=== PATIENT | female | born 1945 | race Caucasian/White ===

== ENCOUNTER 2017-02-03 14:48 | Inpatient (IN) | payer OTHER ==
[~2017-02-03] VITALS: Ht 160 cm; Wt 60.9 kg
[~2017-02-03 14:48] MED LIST: ACCUNEB0.63 MG/3 IH; ACETAMINOPHEN650 M7 PO; ADVAIR 250/501 DISK IH; ADVAIR 500/501 DISK IH; ADVAIR HFA 115-28 GM IH; ADVAIR HFA120 INHALA IH; ALBUTEROL SULF8.5 GM IH; ALBUTEROL2.5 MG/3 M IH; ALEVE220 M2 PO; ALPRAZOLAM0.25 MG PO; AMARYL2 MG PO; AMBIEN5 M1 PO; ATIVAN0.5 MG PO; ATROVENT H200 INHALA IH; AZOR 5-20 MG T1 EACH PO; AZOR 5/20 MG1 TABLET PO; Advair HFA 115/21 IH; Ambien PO; Atrovent HFA Inhaler IH; BENGAY GREASEL113 GM TP; BRETHINE2.5 MG PO; BUMEX1 MG PO; BUSPIRONE HCL10 MG PO; BUSPIRONE HCL5 MG PO; CALCIUM 600 +1 EA15 PO; CALCIUM 600 +1 EAC2 PO; CALCIUM 600 +1 EACH PO; CARDIZEM CD180 MG PO; CARDIZEM120 MG PO; CARDIZEM60 MG PO; CATAPRES0.1 MG PO; CLEOCIN150 MG PO; CLINDAMYCIN HC300 MG PO; CLOTRIMAZOLE15 GM TP; COLACE100 MG PO; COMPAZINE10 MG PO; COZAAR25 MG PO; Cozaar PO; DELTASONE10 MG PO; DESYREL12.5 MG PO; DETROL LA4 MG PO; DITROPAN5 MG PO; DORIBAX500 MG PO; DUONEB 2.5-0.5 M3 ML IH; DURAGESIC12 MCG TD; DURAGESIC75 MCG TD; Detrol LA PO; Duragesic TD; EFFEXOR XR150 MG PO; EFFEXOR XR75 MG PO; EFFEXOR37.5 MG PO; ELIXOPHYLL80 MG/15 M PO; Effexor PO; FENTANYL1 EAC2 TD; FENTANYL1 EACH TD; FLORASTOR250 MG PO; FLULAVAL IM; FOSAMAX70 MG; FOSAMAX70 MG PO; FUROSEMIDE20 MG PO; FUROSEMIDE40 MG PO; Flexeril PO; Fosamax PO; GABAPENTIN100 MG PO; GLIMEPIRIDE2 MG PO; GLIPIZIDE5 M1 PO; GUAIFENESIN-CO480 ML PO; HYDROCHLOROTHIA25 MG PO; IBUPROFEN400 MG PO; ICY HOT PAIN70.8 GM TP; INVanz IV; K-DUR20 MEQ PO; K-Dur PO; KLOR-CON M2020 MEQ PO; LASIX40 MG PO; LEVAQUIN500 MG PO; LEXAPRO10 MG PO; LIDODERM 5% P1 PATCH PO; LIDODERM 5% P1 PATCH TD; LORAZEPAM0.5 MG PO; LOVENOX40 MG/0.4 SC; Lasix PO; MAALOX; MACROBID100 MG PO; MECLIZINE HCL12.5 M1 PO; MELATONIN5 M1 PO; MIRTAZAPINE15 MG PO; MIRTAZAPINE7.5 MG PO; MORPHINE PO; MORPHINE S10 MG/5 ML PO; MORPHINE SULFATE IR; MYRBETRIQ50 MG PO; MYSOLINE50 MG PO; Maalox, Mylanta PO; NASAL DECONGEST30 MG PO; NEURONTIN100 MG PO; NITROGLYCERIN0.4 MG SL; NITROSTAT0.4 MG SL; NIZORAL 2% CREA15 GM TP; NORCO 5-325 TA1 EACH PO; NORCO 5/3251 TABLET PO; NOVOLOG PE100 UNITS/ SC; NOVOLOG100 UNIT/2 SQ; NYSTATIN100000 UN1 PO; Neurontin PO; Nitrostat,NitroQuick SL; OMEPRAZOLE20 M2 PO; OMEPRAZOLE20 MG PO; OSCAL, OYSTER500 MG PO; OXYBUTYNIN CHLOR5 MG PO; OXYCODONE HCL10 MG PO; OXYCODONE HCL5 MG PO; OXYCODONE5 MG PO; Oyst-Cal D, Oscal W/ PO; POTASSIUM CHLO20 ME2 PO; PREDNISONE; PREDNISONE PO; PREDNISONE10 MG PO; PREDNISONE20 M1 PO; PREDNISONE20 MG PO; PREDNISONE5 M2 PO; PREDNISONE5 MG PO; PREVACID30 MG PO; PRILOSEC20 MG PO; PROAIR HFA8.5 GM IH; PROCHLORPERAZIN10 MG PO; PROTONIX40 MG PO; PROVENTIL,2.5 MG/3 M IH; PULMICORT0.5 MG/21 IH; RANITIDINE HCL150 M1 PO; RANITIDINE HCL150 MG PO; ROBITUSSIN AC,T10 ML PO; ROBITUSSIN COU118 M6 PO; ROBITUSSIN DM118 ML PO; ROBITUSSIN100 MG/5 M PO; Reglan IV; Remove Lidoderm Patc TD; Robitussin AC,Tussi- PO; Robitussin, Organidi PO; SCOPOLAMINE; SENNA LAXATIVE1 EACH PO; SENNA8.6 MG PO; SENOKOT S,PE1 TABLET PO; SPIRIVA RESPIMAT4 GM IH; SPIRIVA1 INHALATI IH; Senokot S,Pericolace PO; THEO-24 100 MG100 MG PO; THEO-24200 MG PO; THEO-DUR,THEOC200 MG PO; THEOPHYLLINE A200 M1 PO; TRAMADOL HCL50 MG PO; TYLENOL 8 HOUR650 MG PO; TYLENOL REGULA325 MG PO; TYLENOL WITH C1 EACH PO; Theo-Dur,Theocron PO; Topamax PO; Tylenol Regular Stre PO; VENLAFAXINE HC150 MG PO; XANAX XR0.5 MG PO; XANAX0.5 MG PO; XOPENEX1.25 MG/0. IH; XOPENEX1.25 MG/3 IH; Xanax PO; ZANTAC150 MG PO; ZOFRAN4 MG PO; Zofran PO; Zyvox PO; [UNRECOGNIZED DRUG - OTHER] MM; [UNRECOGNIZED DRUG - OTHER] PO; oxyCODONE PO; predniSONE PO
[2017-02-03 15:48] LABS: BASOPHIL COUNT 0.1 K/uL (0-0.1); EOSINOPHIL (%) 5.9 % (0-5); EOSINOPHIL COUNT 0.5 K/uL (0-0.3); HEMATOCRIT 40.3 % (36.0-46.0); IMMATURE GRANULOCYTE (%) 0.2 % (0.0-0.7); INSTRUMENT ABS NEUTROPHIL CT 5.5 K/uL; LYMPHOCYTE COUNT 1.8 K/uL (1.0-2.8); MCH 29.6 PG (29.0-34.0); MCV 89.6 FL (83-99); MEAN PLAT.VOLUME 7.8 uM^3 (9.5-12.4); MONOCYTE (%) 13.3 % (3-12); MONOCYTE COUNT 1.2 K/uL (0-0.8); NEUTROPHIL (%) 60.3 % (45-76); NEUTROPHIL COUNT 5.5 K/uL (1.8-6.4); PLATELET COUNT 254 K/uL (156-360); RBC DIS.WIDTH-CV 13.2 % (11.8-14.6); RBC DIS.WIDTH-SD 43.7 % (39-53); WHITE BLOOD COUNT 9.1 K/uL (4.1-10.2)
[2017-02-03 16:08] LABS: CHLORIDE 97 mEq/L (99-109)
[2017-02-03 16:09] LABS: POTASSIUM 3.3 mEq/L (3.7-5.4); SODIUM 139 mEq/L (136-147)
[2017-02-03 16:11] LABS: GLUCOSE 98 mg/dL (70-99)
[2017-02-03 16:12] LABS: ANION GAP 12 MEQ/L (2-14)
[2017-02-03 16:13] LABS: TOTAL BILIRUBIN 0.4 mg/dL (0.0-1.0)
[2017-02-03 16:14] LABS: ALKALINE PHOSPHATASE 60 IU/L (3-129); GFR ESTIMATE (CALCULATED) > 59 mL/min/
[2017-02-03 16:16] LABS: UREA NITROGEN (BUN) 13 mg/dL (9-23)
[2017-02-03 16:18] LABS: LIPASE 10 U/L (1.0-51.0)
[2017-02-03] MEDS ORDERED: LO-DOSE ASPIRIN81 M2 PO (18:25)
[2017-02-03] MEDS ORDERED: DONEPEZIL HCL10 MG PO (18:26)
[2017-02-03] MEDS ORDERED: BREO ELLIPTA 21 EACH IH (18:26)
[2017-02-03] MEDS ORDERED: IMDUR60 MG PO (18:27)
[2017-02-03] MEDS ORDERED: DURAGESIC25 MCG TD (18:27)
[2017-02-03] MEDS ORDERED: MEDROL32 MG PO ×2 (18:28→18:29)
[2017-02-03] MEDS ORDERED: METOPROLOL SUCC25 MG PO (18:29)
[2017-02-03] MEDS ORDERED: SENNA-S TABLET1 EACH PO (18:30)
[2017-02-03] MEDS ORDERED: VENLAFAXINE HCL75 MG PO (18:31)
[2017-02-03] MEDS ORDERED: OXYBUTYNIN CHLOR5 MG PO (18:32)
[2017-02-03] MEDS ORDERED: OXYCODONE HCL5 MG PO (18:33)
[2017-02-03] MEDS ORDERED: RANEXA500 MG PO (18:34)
[2017-02-03] MEDS ORDERED: PROTONIX40 MG PO (18:34)
[2017-02-03] MEDS ORDERED: THEOPHYLLINE A200 M1 PO (18:35)
[2017-02-03] MEDS ORDERED: ARTIFICIAL TEAR15 M1 BOTH EYES (18:37)
[2017-02-03] MEDS ORDERED: COMPAZINE5 MG PO (18:37)
[2017-02-03 20:57] VITALS: BP 141/78
[2017-02-04] VITALS (7 sets, daily range): BP systolic 115–169; BP diastolic 56–80
[2017-02-04 02:05] LABS: POINT-OF-CARE METER ID UU14188577
[2017-02-04 06:57] LABS: POINT-OF-CARE METER ID UU14149397
[2017-02-04 08:23] LABS: HEMATOCRIT 37.8 % (36.0-46.0); MCHC 32.3 G/DL (30.0-36.0); MCV 92.9 FL (83-99); MEAN PLAT.VOLUME 8.2 uM^3 (9.5-12.4); PLATELET COUNT 225 K/uL (156-360); RBC DIS.WIDTH-CV 13.7 % (11.8-14.6); RBC DIS.WIDTH-SD 46.5 % (39-53); RED BLOOD COUNT 4.07 M/uL (3.80-5.20); WHITE BLOOD COUNT 9.9 K/uL (4.1-10.2)
[2017-02-04 08:53] LABS: ANION GAP 10 MEQ/L (2-14); CHLORIDE 98 MEQ/L (99-109); GFR ESTIMATE (CALCULATED) 58 mL/min/; GLUCOSE 87 mg/dL (70-99); POTASSIUM 3.7 MEQ/L (3.7-5.4); SAMPLE HEMOLYSIS CHECK 0; SAMPLE ICTERIC CHECK 0; SAMPLE LIPEMIA CHECK 0; SODIUM 142 MEQ/L (136-147); UREA NITROGEN (BUN) 13 mg/dL (9-23)
[2017-02-04 11:14] LABS: POINT-OF-CARE METER ID UU14149397
[2017-02-04 15:47] LABS: POINT-OF-CARE METER ID UU14149397
[2017-02-05 00:10] LABS: POINT-OF-CARE METER ID UU14149397
[2017-02-05 04:05] VITALS: BP 128/74
[2017-02-05 06:21] LABS: MAGNESIUM 1.6 mg/dl (1.3-2.7)
[2017-02-05 06:27] LABS: ALKALINE PHOSPHATASE 52 IU/L (3-129); ANION GAP 10 MEQ/L (2-14); CHLORIDE 101 MEQ/L (99-109); GFR ESTIMATE (CALCULATED) 52 mL/min/; GLUCOSE 151 mg/dL (70-99); POTASSIUM 3.8 MEQ/L (3.7-5.4); SAMPLE HEMOLYSIS CHECK 0; SAMPLE ICTERIC CHECK 0; SAMPLE LIPEMIA CHECK 0; SODIUM 143 MEQ/L (136-147); TOTAL BILIRUBIN 0.3 MG/DL (0.0-1.0); UREA NITROGEN (BUN) 17 mg/dL (9-23)
[2017-02-05 06:29] LABS: POINT-OF-CARE METER ID UU14188577
[2017-02-05 07:07] LABS: EOSINOPHIL (%) 0 % (0-5); HEMATOCRIT 39.5 % (36.0-46.0); IMMATURE GRANULOCYTE (%) 0.3 % (0.0-0.7); INSTRUMENT ABS NEUTROPHIL CT 3.2 K/uL; LYMPHOCYTE COUNT 0.6 K/uL (1.0-2.8); MCH 29.6 PG (29.0-34.0); MCHC 32.2 G/DL (30.0-36.0); MCV 92.1 FL (83-99); MEAN PLAT.VOLUME 8.2 uM^3 (9.5-12.4); MONOCYTE (%) 2.3 % (3-12); MONOCYTE COUNT 0.1 K/uL (0-0.8); NEUTROPHIL (%) 82.1 % (45-76); NEUTROPHIL COUNT 3.2 K/uL (1.8-6.4); PLATELET COUNT 254 K/uL (156-360); RBC DIS.WIDTH-CV 13.4 % (11.8-14.6); RBC DIS.WIDTH-SD 45.4 % (39-53); RED BLOOD COUNT 4.29 M/uL (3.80-5.20)
[2017-02-05 07:13] LABS: WHITE BLOOD COUNT 3.9 K/uL (4.1-10.2)
[2017-02-05 07:32] VITALS: BP 107/68
[2017-02-05 11:31] VITALS: BP 129/76
[2017-02-05 11:46] LABS: POINT-OF-CARE METER ID UU14149397
[2017-02-05 15:50] VITALS: BP 126/60
[2017-02-05 16:23] LABS: POINT-OF-CARE METER ID UU14149397
[2017-02-05 20:31] VITALS: BP 102/62
[2017-02-06 00:02] VITALS: BP 132/65
[2017-02-06 00:29] LABS: POINT-OF-CARE METER ID UU14188577
[2017-02-06 03:26] VITALS: BP 127/63
[2017-02-06 06:25] LABS: POINT-OF-CARE METER ID UU14149397
[2017-02-06 06:27] LABS: ANION GAP 7 MEQ/L (2-14); CHLORIDE 101 MEQ/L (99-109); GFR ESTIMATE (CALCULATED) > 59 mL/min/; GLUCOSE 154 mg/dL (70-99); POTASSIUM 3.6 MEQ/L (3.7-5.4); SAMPLE HEMOLYSIS CHECK 0; SAMPLE ICTERIC CHECK 0; SAMPLE LIPEMIA CHECK 0; SODIUM 141 MEQ/L (136-147); UREA NITROGEN (BUN) 18 mg/dL (9-23)
[2017-02-06 06:37] LABS: MCH 29.4 PG (29.0-34.0); MCHC 31.7 G/DL (30.0-36.0); MCV 92.6 FL (83-99); MEAN PLAT.VOLUME 8.2 uM^3 (9.5-12.4); PLATELET COUNT 249 K/uL (156-360); RBC DIS.WIDTH-CV 13.5 % (11.8-14.6); RBC DIS.WIDTH-SD 45.9 % (39-53); RED BLOOD COUNT 3.78 M/uL (3.80-5.20)
[2017-02-06 06:41] LABS: WHITE BLOOD COUNT 9.7 K/uL (4.1-10.2)
[2017-02-06 07:38] VITALS: BP 126/71
[2017-02-06 12:09] VITALS: BP 156/85
[2017-02-06 13:00] LABS: POINT-OF-CARE METER ID UU14149397
[2017-02-06 15:56] VITALS: BP 144/70
[2017-02-06 16:13] LABS: POINT-OF-CARE METER ID UU14188577
[2017-02-06 20:10] VITALS: BP 132/76
[2017-02-07 00:06] VITALS: BP 168/84
[2017-02-07 04:22] VITALS: BP 147/65
[2017-02-07 06:19] LABS: POINT-OF-CARE METER ID UU14188577
[2017-02-07 06:31] LABS: ALKALINE PHOSPHATASE 40 IU/L (3-129); DIRECT BILIRUBIN 0.1 mg/dL (0.0-0.3); TOTAL BILIRUBIN 0.3 MG/DL (0.0-1.0)
[2017-02-07 12:03] VITALS: BP 145/68
[2017-02-07 15:39] VITALS: BP 145/73
[2017-02-07 16:21] LABS: POINT-OF-CARE METER ID UU14149397
[2017-02-07 19:45] VITALS: BP 151/76
[2017-02-08 00:12] LABS: POINT-OF-CARE METER ID UU14149397
[2017-02-08 00:20] VITALS: BP 166/70
[2017-02-08 03:25] VITALS: BP 157/83
[2017-02-08 06:44] LABS: POINT-OF-CARE METER ID UU14188577
[2017-02-08 07:59] VITALS: BP 161/80
[2017-02-08] MEDS ORDERED: DURAGESIC25 MCG TD (08:55)
[2017-02-08] MEDS ORDERED: PREDNISONE10 MG PO (08:55)
[2017-02-08] MEDS ORDERED: GABAPENTIN100 MG PO (08:55)
[2017-02-08] MEDS ORDERED: OXYCODONE HCL5 MG PO (08:55)
[2017-02-08] MEDS ORDERED: MIRTAZAPINE15 MG PO (08:55)
[2017-02-08 12:02] LABS: POINT-OF-CARE METER ID UU14188577
[2017-02-08 12:35] VITALS: BP 154/85
== END 2017-02-08 12:51 | DRG 190 ==
LOC: EME 14:48 → EDOF 18:39 → 3EAST 18:39
PROVIDERS: Emergency Medicine; Hospitalist; Internal Medicine Gastroenterology; Nurse Practitioner Family; Surgery
DX: J44.1 Chronic obstructive pulmonary disease with (acute) exacerbation (principal); J96.22 Acute and chronic respiratory failure with hypercapnia; J96.21 Acute and chronic respiratory failure with hypoxia; R10.11 Right upper quadrant pain; K80.20 Calculus of gallbladder without cholecystitis without obstruction; I10 Essential (primary) hypertension; E87.6 Hypokalemia; E11.9 Type 2 diabetes mellitus without complications; E78.5 Hyperlipidemia, unspecified; I48.2 Chronic atrial fibrillation; K21.9 Gastro-esophageal reflux disease without esophagitis; F41.9 Anxiety disorder, unspecified; F32.9 Major depressive disorder, single episode, unspecified; R42 Dizziness and giddiness; G89.29 Other chronic pain; Z99.81 Dependence on supplemental oxygen; Z85.42 Personal history of malignant neoplasm of other parts of uterus; Z87.891 Personal history of nicotine dependence; Z88.1 Allergy status to other antibiotic agents; Z88.2 Allergy status to sulfonamides
CPT/HCPCS: 71010; 71020; 74022; 74177; 76705; 78227; 80048; 80053; 80076; 81003; 82948; 83690; 83735; 84100; 85025; 85027; 93005; 94640; 94640 76; 94667; 94668; 94799; 99202; 99281; 99285; A9537; J1650; J1815; J2270; J2405; J2543; J2805; J2920; J7030; J7040; J7042; J7050; J7512

== ENCOUNTER 2017-08-17 05:25 | Day surgery (SDC) | payer OTHER ==
[~2017-08-17] VITALS: Ht 162.6 cm; Wt 81.8 kg
[~2017-08-17 05:25] MED LIST changes: +ARTIFICIAL TEAR15 M1 BOTH EYES; +BREO ELLIPTA 21 EACH IH; +BUSPAR15 MG PO; -BUSPIRONE HCL10 MG PO; +COMPAZINE5 MG PO; +DITROPAN XL10 MG PO; +DONEPEZIL HCL10 MG PO; +DURAGESIC25 MCG TD; +IMDUR60 MG PO; +LASIX20 MG PO; +LO-DOSE ASPIRIN81 M2 PO; +MEDROL32 MG PO; +METOPROLOL SUCC25 MG PO; +MIRALAX17 GM PO; +MS CONTIN,ORAMO15 M1 PO; +RANEXA500 MG PO; +RAYOS5 MG PO; +REMERON15 M2 PO; +SENNA-S TABLET1 EACH PO; +ULTRAM50 MG PO; +VENLAFAXINE HCL75 MG PO; +VENLAFAXINE225 MG PO; +VITAMIN B-121000 MCG PO
[2017-08-17 05:52] VITALS: BP 148/78
[2017-08-17 07:21] LABS: PROBE CHECK PASS
[2017-08-17 07:23] LABS: METH RESISTANT S AUREUS PCR POSITIVE (NEGATIVE)
[2017-08-17 15:25] VITALS: BP 166/76
[2017-08-17 19:26] VITALS: BP 138/74
[2017-08-18 00:22] VITALS: BP 115/56
[2017-08-18 03:21] VITALS: BP 127/79
[2017-08-18 07:05] VITALS: BP 146/78
[2017-08-18 07:10] LABS: HEMATOCRIT 36.4 % (36.0-46.0); MCH 31.8 PG (29.0-34.0); MCHC 30.8 G/DL (30.0-36.0); MCV 103.4 FL (83-99); PLATELET COUNT 180 K/uL (156-360); RBC DIS.WIDTH-CV 13.2 % (11.8-14.6); RBC DIS.WIDTH-SD 49.6 % (39-53); RED BLOOD COUNT 3.52 M/uL (3.80-5.20); WHITE BLOOD COUNT 18.6 K/uL (4.1-10.2)
[2017-08-18 11:42] VITALS: BP 130/66
== END 2017-08-18 14:07 ==
LOC: SDC 05:25 → NUC 07:00 → 2SOUTH 12:15 → 2EASTP 12:15 → ENRESERV 12:21 → 2EASTP 15:09
PROVIDERS: Surgery
DX: C50.411 Malignant neoplasm of upper-outer quadrant of right female breast (principal); Z17.0 Estrogen receptor positive status [ER+]; E66.3 Overweight; Z68.27 Body mass index [BMI] 27.0-27.9, adult; J44.9 Chronic obstructive pulmonary disease, unspecified; I10 Essential (primary) hypertension; K21.9 Gastro-esophageal reflux disease without esophagitis; E11.9 Type 2 diabetes mellitus without complications; F41.8 Other specified anxiety disorders; Z87.891 Personal history of nicotine dependence; Z79.82 Long term (current) use of aspirin; Z88.2 Allergy status to sulfonamides
CPT/HCPCS: 78195; 78999; 85027; 87641; 88305; 88307; 94640 76; 94799; 99202; A9541; G0378; J0330; J1100; J2405; J2710; J3010; J3370; J3480; J7512; S0020

== ENCOUNTER 2017-11-04 13:31 | Inpatient (IN) | payer OTHER ==
[~2017-11-04] VITALS: Ht 162.6 cm; Wt 79.6 kg
[~2017-11-04 13:31] MED LIST changes: +CYANOCOBALAM1000 MCG PO; -LASIX20 MG PO; +PREDNISONE1 MG PO; -RAYOS5 MG PO; +VENLAFAXINE H37.5 M1 PO; -VENLAFAXINE225 MG PO; -VITAMIN B-121000 MCG PO
[2017-11-04 13:51] LABS: HEMATOCRIT 36.4 % (36.0-46.0); MCH 31.4 PG (29.0-34.0); MCHC 32.1 G/DL (30.0-36.0); MCV 97.6 FL (83-99); MEAN PLAT.VOLUME 8.3 uM^3 (9.5-12.4); PLATELET COUNT 214 K/uL (156-360); RBC DIS.WIDTH-CV 12.3 % (11.8-14.6); RBC DIS.WIDTH-SD 44.1 % (39-53); RED BLOOD COUNT 3.73 M/uL (3.80-5.20); WHITE BLOOD COUNT 15.3 K/uL (4.1-10.2)
[2017-11-04 13:57] LABS: INTER. NORMALIZED RATIO 1.1; PROTHROMBIN TIME 12.4 SEC (10.2-12.9)
[2017-11-04 13:59] LABS: PTT 34.2 SEC (25-37)
[2017-11-04 14:08] LABS: CHLORIDE 93 mEq/L (99-109); POTASSIUM 3.3 mEq/L (3.7-5.4); SODIUM 143 mEq/L (136-147)
[2017-11-04 14:09] LABS: GLUCOSE 137 mg/dL (70-99)
[2017-11-04 14:11] LABS: ANION GAP 14 MEQ/L (2-14)
[2017-11-04 14:12] LABS: TROP-I INTERPRETATION NEGATIVE; TROPONIN-I < 0.01 ng/mL (0.0-0.30)
[2017-11-04 14:13] LABS: GFR ESTIMATE (CALCULATED) > 59 mL/min/
[2017-11-04 14:14] LABS: UREA NITROGEN (BUN) 13 mg/dL (9-23)
[2017-11-04] MEDS ORDERED: DALIRESP500 MCG PO (18:23)
[2017-11-04] MEDS ORDERED: TAB-A-VITE-MIN1 EACH PO (18:26)
[2017-11-04] MEDS ORDERED: MYSOLINE50 MG PO (18:28)
[2017-11-04] MEDS ORDERED: DUONEB 2.5-0.5 M3 ML AEROSOL (18:31)
[2017-11-04 19:55] VITALS: BP 134/78
[2017-11-04 22:52] VITALS: BP 114/60
[2017-11-05 03:38] VITALS: BP 122/55
[2017-11-05 05:39] LABS: POINT-OF-CARE METER ID UU13113725
[2017-11-05 05:52] LABS: HEMATOCRIT 38.7 % (36.0-46.0); MCH 31.6 PG (29.0-34.0); MCHC 32.3 G/DL (30.0-36.0); MEAN PLAT.VOLUME 8.6 uM^3 (9.5-12.4); PLATELET COUNT 226 K/uL (156-360); RBC DIS.WIDTH-CV 12.3 % (11.8-14.6); RBC DIS.WIDTH-SD 44.4 % (39-53); RED BLOOD COUNT 3.95 M/uL (3.80-5.20); WHITE BLOOD COUNT 10.6 K/uL (4.1-10.2)
[2017-11-05 07:31] VITALS: BP 134/70
[2017-11-05 08:31] LABS: ANION GAP 10 MEQ/L (2-14); CHLORIDE 97 MEQ/L (99-109); GFR ESTIMATE (CALCULATED) 52 mL/min/; GLUCOSE 181 mg/dL (70-99); SAMPLE HEMOLYSIS CHECK 2; SAMPLE ICTERIC CHECK 0; SAMPLE LIPEMIA CHECK 0; SODIUM 142 MEQ/L (136-147); UREA NITROGEN (BUN) 20 mg/dL (9-23)
[2017-11-05 08:41] LABS: POTASSIUM 4.8 MEQ/L (3.7-5.4)
[2017-11-05 10:59] LABS: POINT-OF-CARE METER ID UU13113774
[2017-11-05 11:32] VITALS: BP 138/72
[2017-11-05 15:58] LABS: POINT-OF-CARE METER ID UU13113774
[2017-11-05 16:30] VITALS: BP 131/66
[2017-11-05 18:49] VITALS: BP 154/76
[2017-11-05 22:37] VITALS: BP 108/61
[2017-11-06 03:07] VITALS: BP 132/70
[2017-11-06 05:49] LABS: EOSINOPHIL (%) 0 % (0-5); HEMATOCRIT 37.6 % (36.0-46.0); IMMATURE GRANULOCYTE (%) 1.4 % (0.0-0.7); IMMATURE GRANULOCYTE COUNT 0.3 K/uL; INSTRUMENT ABS NEUTROPHIL CT 18.1 K/uL; LYMPHOCYTE COUNT 0.7 K/uL (1.0-2.8); MCH 31.3 PG (29.0-34.0); MCHC 32.2 G/DL (30.0-36.0); MCV 97.2 FL (83-99); MEAN PLAT.VOLUME 8.6 uM^3 (9.5-12.4); MONOCYTE (%) 4.4 % (3-12); MONOCYTE COUNT 0.9 K/uL (0-0.8); NEUTROPHIL (%) 90.5 % (45-76); NEUTROPHIL COUNT 18.1 K/uL (1.8-6.4); PLATELET COUNT 254 K/uL (156-360); RBC DIS.WIDTH-CV 12.5 % (11.8-14.6); RBC DIS.WIDTH-SD 44.9 % (39-53); RED BLOOD COUNT 3.87 M/uL (3.80-5.20)
[2017-11-06 05:50] LABS: POINT-OF-CARE METER ID UU14302474
[2017-11-06 06:16] LABS: ANION GAP 9 MEQ/L (2-14); CHLORIDE 98 MEQ/L (99-109); GFR ESTIMATE (CALCULATED) > 59 mL/min/; GLUCOSE 148 mg/dL (70-99); POTASSIUM 4.1 MEQ/L (3.7-5.4); SAMPLE HEMOLYSIS CHECK 0; SAMPLE ICTERIC CHECK 0; SAMPLE LIPEMIA CHECK 0; SODIUM 145 MEQ/L (136-147); UREA NITROGEN (BUN) 17 mg/dL (9-23)
[2017-11-06 07:38] VITALS: BP 136/63
[2017-11-06 11:19] LABS: POINT-OF-CARE METER ID UU14302474
[2017-11-06 16:30] LABS: POINT-OF-CARE METER ID UU13113725
[2017-11-06 16:58] VITALS: BP 131/62
[2017-11-06 23:42] VITALS: BP 132/65
[2017-11-07 05:52] LABS: EOSINOPHIL (%) 0.1 % (0-5); HEMATOCRIT 35.6 % (36.0-46.0); IMMATURE GRANULOCYTE (%) 0.9 % (0.0-0.7); IMMATURE GRANULOCYTE COUNT 0.1 K/uL; INSTRUMENT ABS NEUTROPHIL CT 13.1 K/uL; LYMPHOCYTE COUNT 1.2 K/uL (1.0-2.8); MCH 30.6 PG (29.0-34.0); MCHC 31.5 G/DL (30.0-36.0); MCV 97.3 FL (83-99); MEAN PLAT.VOLUME 8.5 uM^3 (9.5-12.4); MONOCYTE (%) 9.4 % (3-12); MONOCYTE COUNT 1.5 K/uL (0-0.8); NEUTROPHIL COUNT 13.1 K/uL (1.8-6.4); NRBC (%) 0.1 /100 WBC (0-0); PLATELET COUNT 230 K/uL (156-360); RBC DIS.WIDTH-CV 12.4 % (11.8-14.6); RBC DIS.WIDTH-SD 44.8 % (39-53); RED BLOOD COUNT 3.66 M/uL (3.80-5.20)
[2017-11-07 06:07] LABS: POINT-OF-CARE METER ID UU13113774
[2017-11-07 06:32] LABS: ANION GAP 8 MEQ/L (2-14); CHLORIDE 97 MEQ/L (99-109); GFR ESTIMATE (CALCULATED) 58 mL/min/; POTASSIUM 3.8 MEQ/L (3.7-5.4); SAMPLE HEMOLYSIS CHECK 0; SAMPLE ICTERIC CHECK 0; SAMPLE LIPEMIA CHECK 0; SODIUM 141 MEQ/L (136-147); UREA NITROGEN (BUN) 24 mg/dL (9-23)
[2017-11-07 06:34] LABS: GLUCOSE 107 mg/dL (70-99)
[2017-11-07 07:46] VITALS: BP 125/59
[2017-11-07 11:36] LABS: POINT-OF-CARE METER ID UU13113725
[2017-11-07] MEDS ORDERED: AMOX TR-K CLV1 EAC4 PO (14:07)
[2017-11-07] MEDS ORDERED: PREDNISONE20 MG PO (14:08)
== END 2017-11-07 17:00 | DRG 189 ==
LOC: EME 13:31 → EDOF 15:16 → ENRESERV 15:29 → EDOF 19:13 → 5EAST 19:44 → ENRESERV 11-06 10:40 → 5EAST 11-06 12:48
PROVIDERS: Emergency Medicine; Internal Medicine
DX: J96.21 Acute and chronic respiratory failure with hypoxia (principal); J44.1 Chronic obstructive pulmonary disease with (acute) exacerbation; K21.9 Gastro-esophageal reflux disease without esophagitis; I10 Essential (primary) hypertension; F41.8 Other specified anxiety disorders; E11.9 Type 2 diabetes mellitus without complications; R25.1 Tremor, unspecified; J98.01 Acute bronchospasm; E87.6 Hypokalemia; R51 Headache; G89.29 Other chronic pain; D72.829 Elevated white blood cell count, unspecified; E78.5 Hyperlipidemia, unspecified; F31.9 Bipolar disorder, unspecified; J96.12 Chronic respiratory failure with hypercapnia; Z88.2 Allergy status to sulfonamides; Z88.0 Allergy status to penicillin; Z88.1 Allergy status to other antibiotic agents; Z85.42 Personal history of malignant neoplasm of other parts of uterus; Z80.41 Family history of malignant neoplasm of ovary; Z82.49 Family history of ischemic heart disease and other diseases of the circulatory system; Z99.81 Dependence on supplemental oxygen; Z87.891 Personal history of nicotine dependence; Z90.710 Acquired absence of both cervix and uterus; Z79.4 Long term (current) use of insulin; Z66 Do not resuscitate
CPT/HCPCS: 71020; 80048; 82948; 84484; 85025; 85027; 85610; 85730; 87040; 87070; 87077; 87106; 87186; 87205; 87502; 93005; 94640; 94640 76; 94799; 99202; 99281; 99285; J0295; J1650; J1815; J2930; J7050; J7512; J7644

== ENCOUNTER 2018-01-29 15:13 | Inpatient (IN) | payer OTHER ==
[~2018-01-29] VITALS: Ht 162.6 cm; Wt 72.8 kg
[~2018-01-29 15:13] MED LIST changes: +AMOX TR-K CLV1 EAC4 PO; +CARDIZEM CD,CA180 MG PO; -CARDIZEM CD180 MG PO; +DALIRESP500 MCG PO; +DUONEB 2.5-0.5 M3 ML AEROSOL; +LASIX20 MG PO; +TAB-A-VITE-MIN1 EACH PO; -VENLAFAXINE H37.5 M1 PO
[2018-01-29 15:54] LABS: BASOPHIL (%) 0.2 % (0-1); EOSINOPHIL (%) 0.1 % (0-5); HEMATOCRIT 41.8 % (36.0-46.0); HEMOGLOBIN 13.3 G/DL (11.9-15.5); IMMATURE GRANULOCYTE (%) 0.6 % (0.0-0.7); LYMPHOCYTE (%) 3.8 % (15-42); LYMPHOCYTE COUNT 0.7 K/uL (1.0-2.8); MCH 30.4 PG (29.0-34.0); MCHC 31.8 G/DL (30.0-36.0); MCV 95.4 FL (83-99); MONOCYTE (%) 5.6 % (3-12); NEUTROPHIL (%) 89.7 % (45-76); NEUTROPHIL COUNT 15.6 K/uL (1.8-6.4); RBC DIS.WIDTH-CV 13.9 % (11.8-14.6); RBC DIS.WIDTH-SD 48.1 % (39-53); RED BLOOD COUNT 4.38 M/uL (3.80-5.20); WHITE BLOOD COUNT 17.4 K/uL (4.1-10.2)
[2018-01-29 16:04] LABS: ALBUMIN 3.7 g/dL (3.2-4.8); CHLORIDE 91 mEq/L (99-109); POTASSIUM 3.7 mEq/L (3.7-5.4); SODIUM 149 mEq/L (136-147)
[2018-01-29 16:05] LABS: MAGNESIUM 1.4 mg/dL (1.3-2.7)
[2018-01-29 16:07] LABS: GLUCOSE 129 mg/dL (70-99); TOTAL PROTEIN 6.8 g/dL (6.4-8.3)
[2018-01-29 16:09] LABS: TOTAL BILIRUBIN 0.6 mg/dL (0.0-1.0)
[2018-01-29 16:10] LABS: ALKALINE PHOSPHATASE 68 IU/L (3-129)
[2018-01-29 16:11] LABS: CREATININE 1.4 mg/dL (0.6-1.3); GFR ESTIMATE (CALCULATED) 39 mL/min/
[2018-01-29 16:12] LABS: AST (GOT) 516 IU/L (2-34); UREA NITROGEN (BUN) 33 mg/dL (9-23)
[2018-01-29 16:14] LABS: ALT (GPT) 1091 IU/L (3-49); CARBON DIOXIDE (BICARBONATE) > 40.0 mEq/L (20-31)
[2018-01-29 16:16] LABS: TROP-I INTERPRETATION INDETERMINATE; TROPONIN-I 0.48 ng/mL (0.0-0.30)
[2018-01-29 16:16] LABS: BASE EXCESS 23.9 mEq/L (-3 to +3); BICARBONATE 52.1 mEq/L (22-26); CARBOXY HGB 1.6 % (0-5); COMMENTS - BLOOD GASES A+C+; METHEMOGLOBIN 1.2 % (0-1.5); PCO2 70 mm Hg (35-45); PO2 235 mm Hg (80-100); SITE LR; pH 7.48 (7.35-7.45)
[2018-01-29 16:17] LABS: DEVICE HHFNC; FI02 80 %; O2 FLOW 40 L/MIN
[2018-01-29] MEDS ORDERED: KLOR-CON 1010 ME1 PO (16:40)
[2018-01-29] MEDS ORDERED: FLONASE SENSIM9.9 ML BOTH NARES (16:40)
[2018-01-29] MEDS ORDERED: FEMARA2.5 MG PO (16:41)
[2018-01-29] MEDS ORDERED: PREDNISONE10 MG PO (16:43)
[2018-01-29] MEDS ORDERED: NITROSTAT0.4 MG SL (16:48)
[2018-01-29] MEDS ORDERED: ATIVAN0.5 MG PO (16:48)
[2018-01-29] MEDS ORDERED: ZOFRAN4 MG PO (16:49)
[2018-01-29 17:05] LABS: PLAT.SUFFICIENCY ADEQUATE; PLATELET COUNT 211 K/uL (156-360)
[2018-01-29 18:53] LABS: APPEARANCE CLEAR ((CLEAR)); BILIRUBIN NEGATIVE; BLOOD NEGATIVE; COLOR YELLOW ((YELLOW)); GLUCOSE (STRIP) NEGATIVE; KETONES 5; LEUKOCYTES NEGATIVE; NITRITE NEGATIVE; PROTEIN (STRIP) NEGATIVE; SPECIFIC GRAVITY 1.014 (1.000-1.030); UCUL ADDED? NO; UROBILINOGEN 0.2 MG/DL (0.2-1.0)
[2018-01-29 19:42] LABS: INTER. NORMALIZED RATIO 1.2
[2018-01-29 19:44] LABS: PTT 24.5 SEC (25-37)
[2018-01-29 19:52] LABS: ACETAMINOPHEN (TYLENOL) < 10 mcg/mL (10-30); SALICYLATE < 5.0 MG/DL (15-30)
[2018-01-29 22:30] VITALS: BP 167/77
[2018-01-30 04:09] VITALS: BP 165/74
[2018-01-30 06:07] LABS: HEMATOCRIT 41.2 % (36.0-46.0); HEMOGLOBIN 12.6 G/DL (11.9-15.5); MCH 29.6 PG (29.0-34.0); MCHC 30.6 G/DL (30.0-36.0); MCV 96.9 FL (83-99); PLATELET COUNT 220 K/uL (156-360); RBC DIS.WIDTH-CV 14.1 % (11.8-14.6); RBC DIS.WIDTH-SD 49.3 % (39-53); RED BLOOD COUNT 4.25 M/uL (3.80-5.20); WHITE BLOOD COUNT 18.6 K/uL (4.1-10.2)
[2018-01-30 06:30] LABS: TROP-I INTERPRETATION INDETERMINATE; TROPONIN-I 0.37 ng/mL (0.0-0.30)
[2018-01-30 06:43] LABS: ALBUMIN 3.6 G/DL (3.2-4.8); ALKALINE PHOSPHATASE 63 IU/L (3-129); AST (GOT) 318 IU/L (2-34); CHLORIDE 93 MEQ/L (99-109); CREATININE 1.1 MG/DL (0.6-1.3); GFR ESTIMATE (CALCULATED) 52 mL/min/; GLUCOSE 138 mg/dL (70-99); POTASSIUM 3.5 MEQ/L (3.7-5.4); SODIUM 150 MEQ/L (136-147); TOTAL BILIRUBIN 0.7 MG/DL (0.0-1.0); UREA NITROGEN (BUN) 27 mg/dL (9-23)
[2018-01-30 06:49] LABS: CARBON DIOXIDE (BICARBONATE) > 40.0 MEQ/L (20-31)
[2018-01-30 06:50] LABS: ALT (GPT) 821 IU/L (3-49)
[2018-01-30 08:10] VITALS: BP 188/90
[2018-01-30 10:32] LABS: HEPATITIS B SURFACE ANTIGEN Nonreactive
[2018-01-30 10:33] LABS: ANTI-HEPATITIS A VIRUS (IGM) Nonreactive
[2018-01-30 11:51] VITALS: BP 163/95
[2018-01-30 17:25] VITALS: BP 199/97
[2018-01-30 18:37] VITALS: BP 175/75
[2018-01-30 19:20] VITALS: BP 189/82
[2018-01-31 00:20] VITALS: BP 160/70
[2018-01-31 04:02] VITALS: BP 178/80
[2018-01-31 05:33] LABS: BASOPHIL (%) 0.1 % (0-1); EOSINOPHIL (%) 0.1 % (0-5); HEMATOCRIT 40.9 % (36.0-46.0); HEMOGLOBIN 13.2 G/DL (11.9-15.5); IMMATURE GRANULOCYTE (%) 0.7 % (0.0-0.7); LYMPHOCYTE (%) 3.4 % (15-42); LYMPHOCYTE COUNT 0.7 K/uL (1.0-2.8); MCH 30.5 PG (29.0-34.0); MCHC 32.3 G/DL (30.0-36.0); MCV 94.5 FL (83-99); MONOCYTE (%) 5.2 % (3-12); MONOCYTE COUNT 1.1 K/uL (0-0.8); NEUTROPHIL (%) 90.5 % (45-76); NEUTROPHIL COUNT 19.7 K/uL (1.8-6.4); NRBC (%) 0.1 /100 WBC (0-0); PLATELET COUNT 264 K/uL (156-360); RBC DIS.WIDTH-CV 14.6 % (11.8-14.6); RBC DIS.WIDTH-SD 49.4 % (39-53); RED BLOOD COUNT 4.33 M/uL (3.80-5.20); WHITE BLOOD COUNT 21.8 K/uL (4.1-10.2)
[2018-01-31 06:30] LABS: CREATININE 0.9 MG/DL (0.6-1.3); GFR ESTIMATE (CALCULATED) > 59 mL/min/; GLUCOSE 142 mg/dL (70-99); UREA NITROGEN (BUN) 23 mg/dL (9-23)
[2018-01-31 06:31] LABS: ALBUMIN 3.5 G/DL (3.2-4.8); ALKALINE PHOSPHATASE 63 IU/L (3-129); ALT (GPT) 625 IU/L (3-49); AST (GOT) 166 IU/L (2-34); CHLORIDE 93 MEQ/L (99-109); MAGNESIUM 1.1 mg/dl (1.3-2.7); SODIUM 144 MEQ/L (136-147); TOTAL PROTEIN 5.7 G/DL (6.4-8.3)
[2018-01-31 07:40] VITALS: BP 147/70
[2018-01-31 11:46] VITALS: BP 186/92
[2018-01-31 12:05] LABS: INTACT PARATHYROID HORMONE 14 pg/mL (10-69)
[2018-01-31 15:03] VITALS: BP 159/88
[2018-01-31 16:41] LABS: HCV RNA (IU/mL) <15 IU/mL (())
[2018-01-31 19:31] VITALS: BP 145/79
[2018-02-01 00:27] VITALS: BP 180/78
[2018-02-01 03:43] VITALS: BP 146/84
[2018-02-01 05:59] LABS: CHLORIDE 98 MEQ/L (99-109); CREATININE 0.8 MG/DL (0.6-1.3); GFR ESTIMATE (CALCULATED) > 59 mL/min/; GLUCOSE 178 mg/dL (70-99); POTASSIUM 2.8 MEQ/L (3.7-5.4); SODIUM 145 MEQ/L (136-147); UREA NITROGEN (BUN) 16 mg/dL (9-23)
[2018-02-01 07:50] VITALS: BP 151/81
[2018-02-01 08:42] LABS: ALBUMIN 3.5 G/DL (3.2-4.8); ALKALINE PHOSPHATASE 64 IU/L (3-129); ALT (GPT) 424 IU/L (3-49); DIRECT BILIRUBIN 0.4 mg/dL (0.0-0.3); TOTAL BILIRUBIN 0.9 MG/DL (0.0-1.0); TOTAL PROTEIN 5.6 G/DL (6.4-8.3)
[2018-02-01 08:47] LABS: HEMATOCRIT 39.1 % (36.0-46.0); HEMOGLOBIN 12.1 G/DL (11.9-15.5); MCH 29.6 PG (29.0-34.0); MCHC 30.9 G/DL (30.0-36.0); MCV 95.6 FL (83-99); PLATELET COUNT 244 K/uL (156-360); RBC DIS.WIDTH-SD 51.5 % (39-53); RED BLOOD COUNT 4.09 M/uL (3.80-5.20); WHITE BLOOD COUNT 20.4 K/uL (4.1-10.2)
[2018-02-01 08:52] LABS: AST (GOT) 83 IU/L (2-34)
[2018-02-01 11:27] LABS: HCV RNA (LOG IU/mL) <1.18 (())
[2018-02-01 12:24] VITALS: BP 176/87
[2018-02-01 13:11] LABS: BASE EXCESS 9.6 mEq/L (-3 to +3); BICARBONATE 35.3 mEq/L (22-26); CARBOXY HGB 2.2 % (0-5); COMMENTS - BLOOD GASES A+; DEVICE NC; METHEMOGLOBIN 1.4 % (0-1.5); O2 FLOW 3 L/MIN; PCO2 52 mm Hg (35-45); PO2 80 mm Hg (80-100); SITE LR; pH 7.44 (7.35-7.45)
[2018-02-01 13:12] LABS: TOTAL RESP RATE 24 resp/min
[2018-02-01 15:53] VITALS: BP 151/87
[2018-02-01 20:29] VITALS: BP 144/71
[2018-02-02] VITALS (7 sets, daily range): BP systolic 147–189; BP diastolic 73–91
[2018-02-02 05:04] LABS: BASOPHIL (%) 0.2 % (0-1); EOSINOPHIL (%) 0 % (0-5); HEMATOCRIT 38.5 % (36.0-46.0); IMMATURE GRANULOCYTE (%) 1.1 % (0.0-0.7); LYMPHOCYTE (%) 0.9 % (15-42); LYMPHOCYTE COUNT 0.2 K/uL (1.0-2.8); MCH 30.3 PG (29.0-34.0); MCHC 31.2 G/DL (30.0-36.0); MCV 97.2 FL (83-99); MONOCYTE (%) 5.1 % (3-12); NEUTROPHIL (%) 92.7 % (45-76); NEUTROPHIL COUNT 17.7 K/uL (1.8-6.4); NRBC (%) 0.1 /100 WBC (0-0); PLATELET COUNT 193 K/uL (156-360); RBC DIS.WIDTH-CV 15.2 % (11.8-14.6); RBC DIS.WIDTH-SD 54.2 % (39-53); RED BLOOD COUNT 3.96 M/uL (3.80-5.20); WHITE BLOOD COUNT 19.1 K/uL (4.1-10.2)
[2018-02-02 05:17] LABS: ALBUMIN 3.7 g/dL (3.2-4.8); SODIUM 147 mEq/L (136-147)
[2018-02-02 05:19] LABS: CHLORIDE 105 mEq/L (99-109); GLUCOSE 215 mg/dL (70-99); POTASSIUM 3.6 mEq/L (3.7-5.4); TOTAL PROTEIN 6.1 g/dL (6.4-8.3)
[2018-02-02 05:22] LABS: TOTAL BILIRUBIN 0.9 mg/dL (0.0-1.0)
[2018-02-02 05:23] LABS: ALKALINE PHOSPHATASE 70 IU/L (3-129); CREATININE 0.9 mg/dL (0.6-1.3); GFR ESTIMATE (CALCULATED) > 59 mL/min/
[2018-02-02 05:24] LABS: UREA NITROGEN (BUN) 17 mg/dL (9-23)
[2018-02-02 05:25] LABS: AST (GOT) 57 IU/L (2-34); DIRECT BILIRUBIN 0.5 mg/dL (0.0-0.3)
[2018-02-02 05:26] LABS: ALT (GPT) 397 IU/L (3-49)
[2018-02-02 09:44] LABS: BASE EXCESS 6.6 mEq/L (-3 to +3); BICARBONATE 33.5 mEq/L (22-26); CARBOXY HGB 2.4 % (0-5); COMMENTS - BLOOD GASES A+; DEVICE CANNULA; METHEMOGLOBIN 1.6 % (0-1.5); O2 FLOW 4 L/MIN; PCO2 58 mm Hg (35-45); PO2 75 mm Hg (80-100); SITE LR; TOTAL RESP RATE 26 resp/min; pH 7.37 (7.35-7.45)
[2018-02-03] VITALS (16 sets, daily range): BP systolic 100–189; BP diastolic 61–95
[2018-02-03 06:01] LABS: HEMATOCRIT 37.7 % (36.0-46.0); HEMOGLOBIN 11.6 G/DL (11.9-15.5); MCH 29.7 PG (29.0-34.0); MCHC 30.8 G/DL (30.0-36.0); MCV 96.4 FL (83-99); PLATELET COUNT 172 K/uL (156-360); RBC DIS.WIDTH-CV 15.4 % (11.8-14.6); RBC DIS.WIDTH-SD 53.6 % (39-53); RED BLOOD COUNT 3.91 M/uL (3.80-5.20); WHITE BLOOD COUNT 16.5 K/uL (4.1-10.2)
[2018-02-03 06:32] LABS: ALBUMIN 3.5 G/DL (3.2-4.8); ALKALINE PHOSPHATASE 57 IU/L (3-129); ALT (GPT) 215 IU/L (3-49); CHLORIDE 106 MEQ/L (99-109); CREATININE 0.8 MG/DL (0.6-1.3); DIRECT BILIRUBIN 0.2 mg/dL (0.0-0.3); GFR ESTIMATE (CALCULATED) > 59 mL/min/; GLUCOSE 199 mg/dL (70-99); POTASSIUM 3.3 MEQ/L (3.7-5.4); SODIUM 151 MEQ/L (136-147); TOTAL PROTEIN 5.7 G/DL (6.4-8.3); UREA NITROGEN (BUN) 12 mg/dL (9-23)
[2018-02-03 06:37] LABS: AST (GOT) 24 IU/L (2-34); TOTAL BILIRUBIN 0.6 MG/DL (0.0-1.0)
[2018-02-03 06:53] LABS: BASE EXCESS 10.7 mEq/L (-3 to +3); BICARBONATE 37.4 mEq/L (22-26); CARBOXY HGB 2.1 % (0-5); COMMENTS - BLOOD GASES C+A+; DEVICE HFNC; METHEMOGLOBIN 1.5 % (0-1.5); O2 FLOW 8 L/MIN; PCO2 59 mm Hg (35-45); PO2 190 mm Hg (80-100); SITE LR; pH 7.41 (7.35-7.45)
[2018-02-03 13:24] LABS: BASE EXCESS 10.7 mEq/L (-3 to +3); BICARBONATE 37.4 mEq/L (22-26); CARBOXY HGB 2.3 % (0-5); METHEMOGLOBIN 1.6 % (0-1.5); PCO2 59 mm Hg (35-45); pH 7.41 (7.35-7.45)
[2018-02-03 13:25] LABS: COMMENTS - BLOOD GASES A+C+; DEVICE NC; O2 FLOW 4 L/MIN; PO2 57 mm Hg (80-100); SITE LRA; TOTAL RESP RATE 24 resp/min
[2018-02-04] VITALS (23 sets, daily range): BP systolic 134–178; BP diastolic 71–98
[2018-02-04 06:16] LABS: BASOPHIL (%) 0.3 % (0-1); EOSINOPHIL (%) 0 % (0-5); HEMATOCRIT 36.2 % (36.0-46.0); HEMOGLOBIN 10.9 G/DL (11.9-15.5); IMMATURE GRANULOCYTE (%) 1.9 % (0.0-0.7); LYMPHOCYTE (%) 2.4 % (15-42); LYMPHOCYTE COUNT 0.3 K/uL (1.0-2.8); MCH 29.2 PG (29.0-34.0); MCHC 30.1 G/DL (30.0-36.0); MCV 97.1 FL (83-99); MONOCYTE (%) 4.2 % (3-12); MONOCYTE COUNT 0.6 K/uL (0-0.8); NEUTROPHIL (%) 91.2 % (45-76); NEUTROPHIL COUNT 12.3 K/uL (1.8-6.4); PLATELET COUNT 157 K/uL (156-360); RBC DIS.WIDTH-CV 15.3 % (11.8-14.6); RBC DIS.WIDTH-SD 53.9 % (39-53); RED BLOOD COUNT 3.73 M/uL (3.80-5.20); WHITE BLOOD COUNT 13.5 K/uL (4.1-10.2)
[2018-02-04 06:40] LABS: ALBUMIN 3.3 G/DL (3.2-4.8); ALKALINE PHOSPHATASE 47 IU/L (3-129); ALT (GPT) 150 IU/L (3-49); AST (GOT) 20 IU/L (2-34); CHLORIDE 108 MEQ/L (99-109); CREATININE 0.8 MG/DL (0.6-1.3); GFR ESTIMATE (CALCULATED) > 59 mL/min/; GLUCOSE 190 mg/dL (70-99); POTASSIUM 3.1 MEQ/L (3.7-5.4); SODIUM 154 MEQ/L (136-147); TOTAL BILIRUBIN 0.6 MG/DL (0.0-1.0); TOTAL PROTEIN 5.3 G/DL (6.4-8.3); UREA NITROGEN (BUN) 13 mg/dL (9-23)
[2018-02-04 06:47] LABS: MAGNESIUM 1.7 mg/dl (1.3-2.7); PHOSPHORUS < 1.0 mg/dL (2.5-4.9)
[2018-02-05] VITALS (25 sets, daily range): BP systolic 101–185; BP diastolic 74–106
[2018-02-06 05:00] VITALS: BP 152/69
[2018-02-06 07:30] VITALS: BP 190/88
[2018-02-06 11:27] VITALS: BP 171/80
[2018-02-06 12:02] LABS: BASOPHIL (%) 0.1 % (0-1); EOSINOPHIL (%) 0 % (0-5); HEMATOCRIT 36.3 % (36.0-46.0); HEMOGLOBIN 11.1 G/DL (11.9-15.5); IMMATURE GRANULOCYTE (%) 2.5 % (0.0-0.7); LYMPHOCYTE (%) 1.6 % (15-42); LYMPHOCYTE COUNT 0.3 K/uL (1.0-2.8); MCH 29.4 PG (29.0-34.0); MCHC 30.6 G/DL (30.0-36.0); MCV 96.3 FL (83-99); MONOCYTE (%) 3.8 % (3-12); MONOCYTE COUNT 0.7 K/uL (0-0.8); NEUTROPHIL COUNT 16.4 K/uL (1.8-6.4); PLATELET COUNT 192 K/uL (156-360); RBC DIS.WIDTH-CV 15.6 % (11.8-14.6); RBC DIS.WIDTH-SD 54.4 % (39-53); RED BLOOD COUNT 3.77 M/uL (3.80-5.20); WHITE BLOOD COUNT 17.8 K/uL (4.1-10.2)
[2018-02-06 13:17] LABS: CHLORIDE 107 MEQ/L (99-109); CREATININE 0.8 MG/DL (0.6-1.3); GFR ESTIMATE (CALCULATED) > 59 mL/min/; GLUCOSE 225 mg/dL (70-99); SODIUM 149 MEQ/L (136-147); UREA NITROGEN (BUN) 14 mg/dL (9-23)
[2018-02-06 13:31] LABS: POTASSIUM 3.8 MEQ/L (3.7-5.4)
[2018-02-06 15:58] VITALS: BP 163/79
[2018-02-06 19:56] VITALS: BP 185/82
[2018-02-06 23:45] VITALS: BP 197/91
[2018-02-07] VITALS (7 sets, daily range): BP systolic 133–171; BP diastolic 65–96
[2018-02-07 05:36] LABS: BASOPHIL (%) 0.2 % (0-1); EOSINOPHIL (%) 0 % (0-5); HEMATOCRIT 36.6 % (36.0-46.0); HEMOGLOBIN 11.2 G/DL (11.9-15.5); IMMATURE GRANULOCYTE (%) 2.5 % (0.0-0.7); LYMPHOCYTE (%) 2.2 % (15-42); LYMPHOCYTE COUNT 0.4 K/uL (1.0-2.8); MCH 29.6 PG (29.0-34.0); MCHC 30.6 G/DL (30.0-36.0); MCV 96.8 FL (83-99); MONOCYTE (%) 4.9 % (3-12); MONOCYTE COUNT 0.8 K/uL (0-0.8); NEUTROPHIL (%) 90.2 % (45-76); NEUTROPHIL COUNT 14.8 K/uL (1.8-6.4); PLATELET COUNT 205 K/uL (156-360); RBC DIS.WIDTH-CV 15.3 % (11.8-14.6); RBC DIS.WIDTH-SD 54.3 % (39-53); RED BLOOD COUNT 3.78 M/uL (3.80-5.20); WHITE BLOOD COUNT 16.5 K/uL (4.1-10.2)
[2018-02-07 06:00] LABS: ALBUMIN 3.3 G/DL (3.2-4.8); ALKALINE PHOSPHATASE 54 IU/L (3-129); ALT (GPT) 86 IU/L (3-49); AST (GOT) 25 IU/L (2-34); CHLORIDE 106 MEQ/L (99-109); CREATININE 0.8 MG/DL (0.6-1.3); DIRECT BILIRUBIN 0.1 mg/dL (0.0-0.3); GFR ESTIMATE (CALCULATED) > 59 mL/min/; GLUCOSE 238 mg/dL (70-99); MAGNESIUM 1.7 mg/dl (1.3-2.7); POTASSIUM 3.6 MEQ/L (3.7-5.4); SODIUM 150 MEQ/L (136-147); TOTAL BILIRUBIN 0.5 MG/DL (0.0-1.0); TOTAL PROTEIN 5.5 G/DL (6.4-8.3); UREA NITROGEN (BUN) 16 mg/dL (9-23)
[2018-02-07 06:03] LABS: PHOSPHORUS 1.4 mg/dL (2.5-4.9)
[2018-02-08 04:24] VITALS: BP 103/66
[2018-02-08 05:43] LABS: HEMATOCRIT 36.9 % (36.0-46.0); HEMOGLOBIN 11.6 G/DL (11.9-15.5); MCH 30.8 PG (29.0-34.0); MCHC 31.4 G/DL (30.0-36.0); MCV 97.9 FL (83-99); PLATELET COUNT 238 K/uL (156-360); RBC DIS.WIDTH-CV 15.3 % (11.8-14.6); RBC DIS.WIDTH-SD 54.8 % (39-53); RED BLOOD COUNT 3.77 M/uL (3.80-5.20); WHITE BLOOD COUNT 20.8 K/uL (4.1-10.2)
[2018-02-08 06:03] LABS: ALBUMIN 3.4 G/DL (3.2-4.8); ALKALINE PHOSPHATASE 51 IU/L (3-129); ALT (GPT) 74 IU/L (3-49); AST (GOT) 24 IU/L (2-34); CHLORIDE 105 MEQ/L (99-109); CREATININE 1.3 MG/DL (0.6-1.3); GFR ESTIMATE (CALCULATED) 43 mL/min/; GLUCOSE 212 mg/dL (70-99); MAGNESIUM 1.8 mg/dl (1.3-2.7); PHOSPHORUS 2.4 mg/dL (2.5-4.9); POTASSIUM 4.2 MEQ/L (3.7-5.4); SODIUM 150 MEQ/L (136-147); TOTAL BILIRUBIN 0.5 MG/DL (0.0-1.0); TOTAL PROTEIN 5.9 G/DL (6.4-8.3); UREA NITROGEN (BUN) 28 mg/dL (9-23)
[2018-02-08 07:01] VITALS: BP 115/62
[2018-02-08 11:39] VITALS: BP 128/67
[2018-02-08 16:18] VITALS: BP 116/63
[2018-02-08 20:48] VITALS: BP 143/74
[2018-02-08 23:30] VITALS: BP 154/77
[2018-02-09 03:41] VITALS: BP 149/79
[2018-02-09 06:10] LABS: HEMATOCRIT 36.7 % (36.0-46.0); HEMOGLOBIN 11.2 G/DL (11.9-15.5); MCH 29.5 PG (29.0-34.0); MCHC 30.5 G/DL (30.0-36.0); MCV 96.6 FL (83-99); PLATELET COUNT 232 K/uL (156-360); RBC DIS.WIDTH-CV 14.9 % (11.8-14.6); RBC DIS.WIDTH-SD 53.4 % (39-53); WHITE BLOOD COUNT 21.8 K/uL (4.1-10.2)
[2018-02-09 06:24] LABS: ALBUMIN 3.4 G/DL (3.2-4.8); CHLORIDE 103 MEQ/L (99-109); POTASSIUM 3.8 MEQ/L (3.7-5.4); SODIUM 148 MEQ/L (136-147); TOTAL BILIRUBIN 0.5 MG/DL (0.0-1.0)
[2018-02-09 06:30] LABS: ALKALINE PHOSPHATASE 53 IU/L (3-129); ALT (GPT) 70 IU/L (3-49); AST (GOT) 22 IU/L (2-34); CREATININE 0.9 MG/DL (0.6-1.3); GFR ESTIMATE (CALCULATED) > 59 mL/min/; GLUCOSE 156 mg/dL (70-99); PHOSPHORUS 2.3 mg/dL (2.5-4.9); TOTAL PROTEIN 5.7 G/DL (6.4-8.3); UREA NITROGEN (BUN) 22 mg/dL (9-23)
[2018-02-09 07:50] VITALS: BP 159/74
[2018-02-09 12:09] VITALS: BP 160/77
[2018-02-09 16:00] VITALS: BP 130/65
[2018-02-09 18:57] VITALS: BP 126/57
[2018-02-10 00:10] VITALS: BP 127/56
[2018-02-10 04:13] VITALS: BP 114/54
[2018-02-10 06:13] LABS: HEMOGLOBIN 11.7 G/DL (11.9-15.5); MCH 29.8 PG (29.0-34.0); MCHC 31.6 G/DL (30.0-36.0); MCV 94.1 FL (83-99); RBC DIS.WIDTH-CV 14.5 % (11.8-14.6); RBC DIS.WIDTH-SD 50.5 % (39-53); RED BLOOD COUNT 3.93 M/uL (3.80-5.20); WHITE BLOOD COUNT 17.5 K/uL (4.1-10.2)
[2018-02-10 06:30] LABS: ALBUMIN 3.1 G/DL (3.2-4.8); ALKALINE PHOSPHATASE 46 IU/L (3-129); ALT (GPT) 59 IU/L (3-49); AST (GOT) 22 IU/L (2-34); CHLORIDE 100 MEQ/L (99-109); CREATININE 0.7 MG/DL (0.6-1.3); GFR ESTIMATE (CALCULATED) > 59 mL/min/; POTASSIUM 3.2 MEQ/L (3.7-5.4); SODIUM 145 MEQ/L (136-147); TOTAL BILIRUBIN 0.6 MG/DL (0.0-1.0); TOTAL PROTEIN 5.1 G/DL (6.4-8.3); UREA NITROGEN (BUN) 10 mg/dL (9-23)
[2018-02-10 06:32] LABS: GLUCOSE 105 mg/dL (70-99)
[2018-02-10 07:07] LABS: PLAT.SUFFICIENCY ADEQUATE
[2018-02-10 07:16] VITALS: BP 106/59
[2018-02-10] MEDS ORDERED: NIFEDIPINE ER90 MG PO (11:26)
[2018-02-10] MEDS ORDERED: PREDNISONE10 MG PO (11:27)
[2018-02-10] MEDS ORDERED: THEOPHYLLINE400 MG PO (11:29)
[2018-02-10] MEDS ORDERED: MORPHINE CON20 MG/M1 SL (11:35)
[2018-02-10 12:07] VITALS: BP 131/66
[2018-02-10 13:42] LABS: PLATELET COUNT 161 K/uL (156-360)
[2018-02-10 16:01] VITALS: BP 143/63
== END 2018-02-10 18:27 | DRG 189 ==
LOC: EME 15:13 → EDOF 19:53 → 4EAST 19:53 → 4WEST 19:53 → ENRESERV 19:57 → 4EAST 22:11 → ENRESERV 01-30 18:12 → CANRESERV 01-30 18:12 → 4EAST 02-03 14:24 → ENRESERV 02-03 14:25 → 4WEST 02-03 14:52 → ENRESERV 02-05 20:01 → 4EAST 02-05 22:02 → ENRESERV 02-08 17:25 → 5SOUTH 02-08 20:46
PROVIDERS: Emergency Medicine; Hospitalist; Internal Medicine; Internal Medicine Gastroenterology; Physician Assistant Medical
PROC: 5A09357 Assistance with Respiratory Ventilation, Less than 24 Consecutive Hours, Continuous Positive Airway Pressure (ICD-10-PCS; principal; 2018-02-03)
DX: J96.21 Acute and chronic respiratory failure with hypoxia (principal); G93.40 Encephalopathy, unspecified; J96.22 Acute and chronic respiratory failure with hypercapnia; E87.4 Mixed disorder of acid-base balance; J44.1 Chronic obstructive pulmonary disease with (acute) exacerbation; J20.9 Acute bronchitis, unspecified; J44.0 Chronic obstructive pulmonary disease with (acute) lower respiratory infection; Z99.81 Dependence on supplemental oxygen; N17.9 Acute kidney failure, unspecified; E83.52 Hypercalcemia; E83.39 Other disorders of phosphorus metabolism; B37.0 Candidal stomatitis; E87.0 Hyperosmolality and hypernatremia; C50.911 Malignant neoplasm of unspecified site of right female breast; T50.1X5A Adverse effect of loop [high-ceiling] diuretics, initial encounter; E86.0 Dehydration; K71.6 Toxic liver disease with hepatitis, not elsewhere classified; K71.9 Toxic liver disease, unspecified; Z66 Do not resuscitate; T45.1X5A Adverse effect of antineoplastic and immunosuppressive drugs, initial encounter; I24.8 Other forms of acute ischemic heart disease; D72.828 Other elevated white blood cell count; T38.0X5A Adverse effect of glucocorticoids and synthetic analogues, initial encounter; R00.0 Tachycardia, unspecified; E87.6 Hypokalemia; I12.9 Hypertensive chronic kidney disease with stage 1 through stage 4 chronic kidney disease, or unspecified chronic kidney disease; N18.3 Chronic kidney disease, stage 3 (moderate); E11.22 Type 2 diabetes mellitus with diabetic chronic kidney disease; G47.33 Obstructive sleep apnea (adult) (pediatric); I48.0 Paroxysmal atrial fibrillation; E78.00 Pure hypercholesterolemia, unspecified; F03.90 Unspecified dementia, unspecified severity, without behavioral disturbance, psychotic disturbance, mood disturbance, and anxiety; Z90.11 Acquired absence of right breast and nipple; R25.1 Tremor, unspecified; K21.9 Gastro-esophageal reflux disease without esophagitis; K42.9 Umbilical hernia without obstruction or gangrene; K59.00 Constipation, unspecified; M85.80 Other specified disorders of bone density and structure, unspecified site; G89.29 Other chronic pain; F41.9 Anxiety disorder, unspecified; F32.9 Major depressive disorder, single episode, unspecified; Z79.899 Other long term (current) drug therapy; Z90.710 Acquired absence of both cervix and uterus; Z87.891 Personal history of nicotine dependence; Z80.41 Family history of malignant neoplasm of ovary
CPT/HCPCS: 36600; 71045; 71250; 74176; 80048; 80053; 80076; 81003; 82140; 82803; 83516 90; 83519 90; 83605; 83735; 83880; 83970; 84100; 84484; 85025; 85027; 85610; 85730; 86038; 86235; 86256 90; 86709; 87040; 87340; 87522 90; 87641; 92526 GN; 92610 GN; 93005; 93306; 94002; 94003; 94640; 94640 76; 94660; 94760; 94799; 99202; 99281; 99285; G0480; J0360; J0456; J0630; J0692; J1450; J1644; J2060; J2270; J2765; J2930; J3475; J3480; J3489; J7040; J7050; J7070; J7512

== ENCOUNTER 2018-02-13 10:36 | Inpatient (IN) | payer OTHER ==
[~2018-02-13] VITALS: Ht 162.6 cm; Wt 71.8 kg
[~2018-02-13 10:36] MED LIST changes: +FEMARA2.5 MG PO; +FLONASE SENSIM9.9 ML BOTH NARES; +KLOR-CON 1010 ME1 PO; +MORPHINE CON20 MG/M1 SL; +NIFEDIPINE ER90 MG PO; +THEOPHYLLINE400 MG PO
[2018-02-13 11:08] LABS: BASOPHIL (%) 0.4 % (0-1); BASOPHIL COUNT 0.1 K/uL (0-0.1); EOSINOPHIL (%) 0.4 % (0-5); EOSINOPHIL COUNT 0.1 K/uL (0-0.3); HEMATOCRIT 36.7 % (36.0-46.0); HEMOGLOBIN 11.7 G/DL (11.9-15.5); IMMATURE GRANULOCYTE (%) 3.8 % (0.0-0.7); LYMPHOCYTE (%) 4.8 % (15-42); LYMPHOCYTE COUNT 1.2 K/uL (1.0-2.8); MCH 30.8 PG (29.0-34.0); MCHC 31.9 G/DL (30.0-36.0); MCV 96.6 FL (83-99); MONOCYTE (%) 4.6 % (3-12); MONOCYTE COUNT 1.2 K/uL (0-0.8); NEUTROPHIL COUNT 22.2 K/uL (1.8-6.4); NRBC (%) 0.8 /100 WBC (0-0); PLATELET COUNT 178 K/uL (156-360); RBC DIS.WIDTH-CV 14.6 % (11.8-14.6); RBC DIS.WIDTH-SD 50.4 % (39-53); WHITE BLOOD COUNT 25.8 K/uL (4.1-10.2)
[2018-02-13 11:17] LABS: PTT 26.4 SEC (25-37)
[2018-02-13 11:19] LABS: CHLORIDE 91 mEq/L (99-109); SODIUM 144 mEq/L (136-147)
[2018-02-13 11:20] LABS: GLUCOSE 106 mg/dL (70-99)
[2018-02-13 11:22] LABS: POTASSIUM 4.5 mEq/L (3.7-5.4)
[2018-02-13 11:24] LABS: CREATININE 0.9 mg/dL (0.6-1.3); GFR ESTIMATE (CALCULATED) > 59 mL/min/
[2018-02-13 11:25] LABS: UREA NITROGEN (BUN) 9 mg/dL (9-23)
[2018-02-13 11:25] LABS: BASE EXCESS 18.7 mEq/L (-3 to +3); CARBOXY HGB 2.8 % (0-5); METHEMOGLOBIN 0.9 % (0-1.5); PO2 53 mm Hg (80-100); pH 7.37 (7.35-7.45)
[2018-02-13 11:26] LABS: PCO2 83 mm Hg (35-45); SITE LR
[2018-02-13 11:27] LABS: COMMENTS - BLOOD GASES A+C+; DEVICE VM; FI02 40 %; O2 FLOW 8 L/MIN; TOTAL RESP RATE 16 resp/min
[2018-02-13 11:33] LABS: TROP-I INTERPRETATION NEGATIVE; TROPONIN-I 0.16 ng/mL (0.0-0.30)
[2018-02-13] MEDS ORDERED: DILTIAZEM 24HR180 MG PO (13:19)
[2018-02-13] MEDS ORDERED: COLACE100 MG PO (13:20)
[2018-02-13] MEDS ORDERED: LASIX40 MG PO (13:22)
[2018-02-13] MEDS ORDERED: DUONEB 2.5-0.5 M3 ML AEROSOL (13:26)
[2018-02-13] MEDS ORDERED: MORPHINE CON20 MG/M1 PO (13:28)
[2018-02-13] MEDS ORDERED: RAYOS1 MG PO ×2 (13:32)
[2018-02-13] MEDS ORDERED: FEMARA2.5 MG PO (13:36)
[2018-02-13] MEDS ORDERED: MS CONTIN,ORAMO15 M1 PO (13:37)
[2018-02-13] MEDS ORDERED: ANTIVERT12.5 MG PO (13:38)
[2018-02-13] MEDS ORDERED: EFFEXOR37.5 MG PO (13:43)
[2018-02-13] MEDS ORDERED: EFFEXOR75 MG PO (13:44)
[2018-02-13 15:13] VITALS: BP 157/81
[2018-02-13 16:00] VITALS: BP 129/77
[2018-02-13 16:01] VITALS: BP 129/77
[2018-02-13 20:01] VITALS: BP 150/90
[2018-02-13 22:08] VITALS: BP 116/65
[2018-02-13 23:33] LABS: APPEARANCE CLEAR ((CLEAR)); BILIRUBIN NEGATIVE; BLOOD NEGATIVE; COLOR YELLOW ((YELLOW)); GLUCOSE (STRIP) NEGATIVE; KETONES 5; LEUKOCYTES NEGATIVE; NITRITE NEGATIVE; PROTEIN (STRIP) NEGATIVE; SPECIFIC GRAVITY 1.011 (1.000-1.030); UCUL ADDED? NO; UROBILINOGEN 0.2 MG/DL (0.2-1.0)
[2018-02-14] VITALS (22 sets, daily range): BP systolic 113–196; BP diastolic 61–111
[2018-02-14 10:10] LABS: BASE EXCESS 13.9 mEq/L (-3 to +3); BICARBONATE 39.8 mEq/L (22-26); CARBOXY HGB 1.9 % (0-5); METHEMOGLOBIN 1.7 % (0-1.5); pH 7.46 (7.35-7.45)
[2018-02-14 10:11] LABS: COMMENTS - BLOOD GASES A+C+; DEVICE VENT MASK; FI02 40 %; MECHANICAL RATE 18 resp/min; MODE ACPC; PCO2 56 mm Hg (35-45); PO2 89 mm Hg (80-100); PRESSURE CONTROL VENTILATION 12 CM H20; SITE LRAD; TOTAL RESP RATE 20 resp/min
[2018-02-14 10:12] LABS: INSPIRATION TIME 1 seconds; PEEP 10 CM/H20
[2018-02-14 11:14] LABS: ALBUMIN 3.3 G/DL (3.2-4.8); ALKALINE PHOSPHATASE 56 IU/L (3-129); ALT (GPT) 61 IU/L (3-49); AST (GOT) 17 IU/L (2-34); CHLORIDE 94 MEQ/L (99-109); GFR ESTIMATE (CALCULATED) 58 mL/min/; MAGNESIUM 1.6 mg/dl (1.3-2.7); PHOSPHORUS 2.4 mg/dL (2.5-4.9); SODIUM 143 MEQ/L (136-147); TOTAL BILIRUBIN 0.5 MG/DL (0.0-1.0); TOTAL PROTEIN 5.4 G/DL (6.4-8.3); UREA NITROGEN (BUN) 13 mg/dL (9-23)
[2018-02-14 11:18] LABS: GLUCOSE 227 mg/dL (70-99); HIGH-SENS C-REACTIVE PROTEIN > 8.00 MG/DL (0.02-0.20)
[2018-02-14 12:48] LABS: BASOPHIL (%) 0.2 % (0-1); EOSINOPHIL (%) 0 % (0-5); HEMATOCRIT 32.3 % (36.0-46.0); HEMOGLOBIN 10.3 G/DL (11.9-15.5); IMMATURE GRANULOCYTE (%) 3.3 % (0.0-0.7); LYMPHOCYTE (%) 2.1 % (15-42); LYMPHOCYTE COUNT 0.4 K/uL (1.0-2.8); MCH 30.3 PG (29.0-34.0); MCHC 31.9 G/DL (30.0-36.0); MONOCYTE (%) 2.7 % (3-12); MONOCYTE COUNT 0.5 K/uL (0-0.8); NEUTROPHIL (%) 91.7 % (45-76); NEUTROPHIL COUNT 16.3 K/uL (1.8-6.4); NRBC (%) 0.5 /100 WBC (0-0); PLATELET COUNT 153 K/uL (156-360); RBC DIS.WIDTH-CV 14.7 % (11.8-14.6); RBC DIS.WIDTH-SD 50.5 % (39-53); WHITE BLOOD COUNT 17.8 K/uL (4.1-10.2)
[2018-02-15] VITALS (27 sets, daily range): BP systolic 125–194; BP diastolic 62–116
[2018-02-15 06:56] LABS: BASOPHIL (%) 0.2 % (0-1); EOSINOPHIL (%) 0 % (0-5); HEMATOCRIT 32.1 % (36.0-46.0); HEMOGLOBIN 10.1 G/DL (11.9-15.5); IMMATURE GRANULOCYTE (%) 2.5 % (0.0-0.7); LYMPHOCYTE (%) 1.7 % (15-42); LYMPHOCYTE COUNT 0.3 K/uL (1.0-2.8); MCH 29.4 PG (29.0-34.0); MCHC 31.5 G/DL (30.0-36.0); MCV 93.3 FL (83-99); MONOCYTE (%) 3.6 % (3-12); MONOCYTE COUNT 0.7 K/uL (0-0.8); NEUTROPHIL COUNT 16.8 K/uL (1.8-6.4); NRBC (%) 0.5 /100 WBC (0-0); PLATELET COUNT 139 K/uL (156-360); RBC DIS.WIDTH-CV 14.6 % (11.8-14.6); RBC DIS.WIDTH-SD 49.1 % (39-53); RED BLOOD COUNT 3.44 M/uL (3.80-5.20); WHITE BLOOD COUNT 18.2 K/uL (4.1-10.2)
[2018-02-15 07:29] LABS: ALBUMIN 3.3 G/DL (3.2-4.8); ALT (GPT) 51 IU/L (3-49); CHLORIDE 100 MEQ/L (99-109); CREATININE 0.8 MG/DL (0.6-1.3); GFR ESTIMATE (CALCULATED) > 59 mL/min/; GLUCOSE 190 mg/dL (70-99); MAGNESIUM 1.7 mg/dl (1.3-2.7); POTASSIUM 3.5 MEQ/L (3.7-5.4); SODIUM 147 MEQ/L (136-147); TOTAL PROTEIN 5.2 G/DL (6.4-8.3); UREA NITROGEN (BUN) 13 mg/dL (9-23)
[2018-02-15 07:30] LABS: ALKALINE PHOSPHATASE 55 IU/L (3-129); AST (GOT) 18 IU/L (2-34)
[2018-02-15 07:32] LABS: PHOSPHORUS 1.4 mg/dL (2.5-4.9); TOTAL BILIRUBIN 0.7 MG/DL (0.0-1.0)
[2018-02-15 10:27] LABS: BASE EXCESS 13.4 mEq/L (-3 to +3); BICARBONATE 37.6 mEq/L (22-26); CARBOXY HGB 1.9 % (0-5); METHEMOGLOBIN 1.7 % (0-1.5); PO2 76 mm Hg (80-100); pH 7.53 (7.35-7.45)
[2018-02-15 10:28] LABS: COMMENTS - BLOOD GASES A+C+; DEVICE HFNC; O2 FLOW 5 L/MIN; PCO2 45 mm Hg (35-45); SITE RR; TOTAL RESP RATE 20 resp/min
[2018-02-15 11:03] LABS: HEMOGLOBIN A1c (GLYCOHEMOGLOB) 6.3 % (Below 5.7)
[2018-02-16] VITALS (15 sets, daily range): BP systolic 113–199; BP diastolic 64–107
[2018-02-16 07:26] LABS: BASOPHIL (%) 0.2 % (0-1); EOSINOPHIL (%) 0 % (0-5); HEMATOCRIT 37.4 % (36.0-46.0); IMMATURE GRANULOCYTE (%) 2.4 % (0.0-0.7); LYMPHOCYTE (%) 2.1 % (15-42); LYMPHOCYTE COUNT 0.5 K/uL (1.0-2.8); MCH 29.7 PG (29.0-34.0); MCHC 32.1 G/DL (30.0-36.0); MCV 92.6 FL (83-99); MONOCYTE (%) 5.2 % (3-12); MONOCYTE COUNT 1.2 K/uL (0-0.8); NEUTROPHIL (%) 90.1 % (45-76); NEUTROPHIL COUNT 20.5 K/uL (1.8-6.4); NRBC (%) 0.7 /100 WBC (0-0); PLATELET COUNT 170 K/uL (156-360); RBC DIS.WIDTH-CV 15.4 % (11.8-14.6); RBC DIS.WIDTH-SD 49.8 % (39-53); RED BLOOD COUNT 4.04 M/uL (3.80-5.20); WHITE BLOOD COUNT 22.8 K/uL (4.1-10.2)
[2018-02-16 07:59] LABS: ALBUMIN 3.8 G/DL (3.2-4.8); ALKALINE PHOSPHATASE 66 IU/L (3-129); ALT (GPT) 50 IU/L (3-49); AMYLASE 20 IU/L (1-118); AST (GOT) 22 IU/L (2-34); CHLORIDE 104 MEQ/L (99-109); CREATININE 0.7 MG/DL (0.6-1.3); GFR ESTIMATE (CALCULATED) > 59 mL/min/; GLUCOSE 169 mg/dL (70-99); LIPASE 14 U/L (1.0-51.0); MAGNESIUM 1.9 mg/dl (1.3-2.7); SODIUM 148 MEQ/L (136-147); TOTAL BILIRUBIN 0.9 MG/DL (0.0-1.0); TOTAL PROTEIN 5.9 G/DL (6.4-8.3); UREA NITROGEN (BUN) 11 mg/dL (9-23)
[2018-02-17] VITALS (7 sets, daily range): BP systolic 137–167; BP diastolic 71–86
[2018-02-17 06:32] LABS: BASOPHIL (%) 0.1 % (0-1); EOSINOPHIL (%) 0 % (0-5); HEMATOCRIT 32.1 % (36.0-46.0); HEMOGLOBIN 10.6 G/DL (11.9-15.5); IMMATURE GRANULOCYTE (%) 1.6 % (0.0-0.7); LYMPHOCYTE (%) 1.6 % (15-42); LYMPHOCYTE COUNT 0.2 K/uL (1.0-2.8); MCH 30.6 PG (29.0-34.0); MCV 92.8 FL (83-99); MONOCYTE (%) 2.5 % (3-12); MONOCYTE COUNT 0.3 K/uL (0-0.8); NEUTROPHIL (%) 94.2 % (45-76); NEUTROPHIL COUNT 11.9 K/uL (1.8-6.4); NRBC (%) 0.3 /100 WBC (0-0); RBC DIS.WIDTH-CV 15.4 % (11.8-14.6); RBC DIS.WIDTH-SD 50.2 % (39-53); RED BLOOD COUNT 3.46 M/uL (3.80-5.20); WHITE BLOOD COUNT 12.7 K/uL (4.1-10.2)
[2018-02-17 07:04] LABS: PLAT.SUFFICIENCY ADEQUATE
[2018-02-17 07:05] LABS: PLATELET COUNT 111 K/uL (156-360)
[2018-02-17 07:10] LABS: ALBUMIN 3.4 G/DL (3.2-4.8); ALKALINE PHOSPHATASE 56 IU/L (3-129); ALT (GPT) 38 IU/L (3-49); AST (GOT) 25 IU/L (2-34); CHLORIDE 94 MEQ/L (99-109); CREATININE 0.7 MG/DL (0.6-1.3); GFR ESTIMATE (CALCULATED) > 59 mL/min/; GLUCOSE 153 mg/dL (70-99); MAGNESIUM 1.8 mg/dl (1.3-2.7); TOTAL PROTEIN 5.3 G/DL (6.4-8.3); UREA NITROGEN (BUN) 9 mg/dL (9-23)
[2018-02-17 07:11] LABS: PHOSPHORUS 2.6 mg/dL (2.5-4.9); POTASSIUM 3.8 MEQ/L (3.7-5.4); SODIUM 132 MEQ/L (136-147); TOTAL BILIRUBIN 1.1 MG/DL (0.0-1.0)
[2018-02-18 04:03] VITALS: BP 183/85
[2018-02-18 06:43] VITALS: BP 179/75
[2018-02-18 07:12] LABS: BASOPHIL (%) 0.1 % (0-1); EOSINOPHIL (%) 0 % (0-5); HEMATOCRIT 30.8 % (36.0-46.0); HEMOGLOBIN 10.4 G/DL (11.9-15.5); IMMATURE GRANULOCYTE (%) 1.4 % (0.0-0.7); LYMPHOCYTE (%) 1.1 % (15-42); LYMPHOCYTE COUNT 0.1 K/uL (1.0-2.8); MCH 30.7 PG (29.0-34.0); MCHC 33.8 G/DL (30.0-36.0); MCV 90.9 FL (83-99); MONOCYTE (%) 4.5 % (3-12); MONOCYTE COUNT 0.5 K/uL (0-0.8); NEUTROPHIL (%) 92.9 % (45-76); NEUTROPHIL COUNT 9.9 K/uL (1.8-6.4); PLATELET COUNT 91 K/uL (156-360); RBC DIS.WIDTH-CV 15.2 % (11.8-14.6); RED BLOOD COUNT 3.39 M/uL (3.80-5.20); WHITE BLOOD COUNT 10.6 K/uL (4.1-10.2)
[2018-02-18 07:39] LABS: ALBUMIN 3.3 G/DL (3.2-4.8); ALKALINE PHOSPHATASE 52 IU/L (3-129); ALT (GPT) 39 IU/L (3-49); AST (GOT) 18 IU/L (2-34); CHLORIDE 97 MEQ/L (99-109); CREATININE 0.8 MG/DL (0.6-1.3); GFR ESTIMATE (CALCULATED) > 59 mL/min/; GLUCOSE 157 mg/dL (70-99); MAGNESIUM 1.7 mg/dl (1.3-2.7); POTASSIUM 3.6 MEQ/L (3.7-5.4); SODIUM 134 MEQ/L (136-147); TOTAL PROTEIN 5.1 G/DL (6.4-8.3); UREA NITROGEN (BUN) 9 mg/dL (9-23)
[2018-02-18 07:43] LABS: TOTAL BILIRUBIN 0.8 MG/DL (0.0-1.0)
[2018-02-18 08:00] VITALS: BP 124/59
[2018-02-18 14:39] VITALS: BP 146/78
[2018-02-18 22:49] VITALS: BP 167/83
[2018-02-19 05:56] LABS: BASOPHIL (%) 0.1 % (0-1); EOSINOPHIL (%) 0 % (0-5); HEMOGLOBIN 10.6 G/DL (11.9-15.5); IMMATURE GRANULOCYTE (%) 0.8 % (0.0-0.7); LYMPHOCYTE (%) 0.4 % (15-42); LYMPHOCYTE COUNT 0.1 K/uL (1.0-2.8); MCH 30.3 PG (29.0-34.0); MCHC 33.1 G/DL (30.0-36.0); MCV 91.4 FL (83-99); MONOCYTE (%) 2.5 % (3-12); MONOCYTE COUNT 0.5 K/uL (0-0.8); NEUTROPHIL (%) 96.2 % (45-76); NEUTROPHIL COUNT 18.2 K/uL (1.8-6.4); NRBC (%) 0.1 /100 WBC (0-0); PLATELET COUNT 110 K/uL (156-360); RBC DIS.WIDTH-CV 15.8 % (11.8-14.6); WHITE BLOOD COUNT 18.9 K/uL (4.1-10.2)
[2018-02-19 06:27] LABS: ALBUMIN 3.6 G/DL (3.2-4.8); ALKALINE PHOSPHATASE 55 IU/L (3-129); ALT (GPT) 34 IU/L (3-49); AST (GOT) 13 IU/L (2-34); CHLORIDE 94 MEQ/L (99-109); GFR ESTIMATE (CALCULATED) 58 mL/min/; GLUCOSE 165 mg/dL (70-99); MAGNESIUM 1.7 mg/dl (1.3-2.7); PHOSPHORUS 2.4 mg/dL (2.5-4.9); POTASSIUM 3.5 MEQ/L (3.7-5.4); SODIUM 133 MEQ/L (136-147); TOTAL BILIRUBIN 0.8 MG/DL (0.0-1.0); TOTAL PROTEIN 5.4 G/DL (6.4-8.3); UREA NITROGEN (BUN) 12 mg/dL (9-23)
[2018-02-19 06:47] VITALS: BP 170/73
[2018-02-19 15:37] VITALS: BP 168/83
[2018-02-20 00:31] VITALS: BP 141/84
[2018-02-20 06:50] LABS: BASOPHIL (%) 0.1 % (0-1); EOSINOPHIL (%) 0 % (0-5); HEMATOCRIT 30.6 % (36.0-46.0); LYMPHOCYTE (%) 0.6 % (15-42); LYMPHOCYTE COUNT 0.1 K/uL (1.0-2.8); MCHC 32.7 G/DL (30.0-36.0); MCV 91.9 FL (83-99); MONOCYTE (%) 3.1 % (3-12); MONOCYTE COUNT 0.5 K/uL (0-0.8); NEUTROPHIL (%) 95.2 % (45-76); PLATELET COUNT 106 K/uL (156-360); RBC DIS.WIDTH-CV 16.1 % (11.8-14.6); RBC DIS.WIDTH-SD 50.4 % (39-53); RED BLOOD COUNT 3.33 M/uL (3.80-5.20); WHITE BLOOD COUNT 16.8 K/uL (4.1-10.2)
[2018-02-20 07:14] LABS: ALBUMIN 3.6 G/DL (3.2-4.8); ALKALINE PHOSPHATASE 59 IU/L (3-129); ALT (GPT) 35 IU/L (3-49); AST (GOT) 13 IU/L (2-34); CHLORIDE 95 MEQ/L (99-109); CREATININE 1.4 MG/DL (0.6-1.3); GFR ESTIMATE (CALCULATED) 39 mL/min/; GLUCOSE 152 mg/dL (70-99); MAGNESIUM 1.6 mg/dl (1.3-2.7); PHOSPHORUS 2.4 mg/dL (2.5-4.9); POTASSIUM 3.7 MEQ/L (3.7-5.4); SODIUM 138 MEQ/L (136-147); TOTAL BILIRUBIN 0.7 MG/DL (0.0-1.0); TOTAL PROTEIN 5.6 G/DL (6.4-8.3); UREA NITROGEN (BUN) 15 mg/dL (9-23)
[2018-02-20 07:15] VITALS: BP 186/74
[2018-02-20 07:25] LABS: CHLORIDE 97 MEQ/L (99-109); CREATININE 1.4 MG/DL (0.6-1.3); GFR ESTIMATE (CALCULATED) 39 mL/min/; GLUCOSE 157 mg/dL (70-99); POTASSIUM 3.7 MEQ/L (3.7-5.4); SODIUM 140 MEQ/L (136-147); UREA NITROGEN (BUN) 15 mg/dL (9-23)
[2018-02-20 10:11] VITALS: BP 150/78
[2018-02-20 10:45] LABS: BASE EXCESS 10.6 mEq/L (-3 to +3); BICARBONATE 36.5 mEq/L (22-26); CARBOXY HGB 2.4 % (0-5); METHEMOGLOBIN 1.9 % (0-1.5); PO2 61 mm Hg (80-100)
[2018-02-20 10:46] LABS: COMMENTS - BLOOD GASES A+C+; DEVICE NC; O2 FLOW 3 L/MIN; PCO2 55 mm Hg (35-45); SITE LR; TOTAL RESP RATE 16 resp/min; pH 7.43 (7.35-7.45)
[2018-02-20 15:45] VITALS: BP 183/84
[2018-02-20 23:51] VITALS: BP 170/80
[2018-02-21 01:25] VITALS: BP 140/84
[2018-02-21 06:19] LABS: BASOPHIL (%) 0.1 % (0-1); EOSINOPHIL (%) 0 % (0-5); HEMATOCRIT 30.6 % (36.0-46.0); HEMOGLOBIN 10.1 G/DL (11.9-15.5); IMMATURE GRANULOCYTE (%) 1.1 % (0.0-0.7); LYMPHOCYTE (%) 0.4 % (15-42); LYMPHOCYTE COUNT 0.1 K/uL (1.0-2.8); MCH 30.4 PG (29.0-34.0); MCV 92.2 FL (83-99); MONOCYTE (%) 2.4 % (3-12); MONOCYTE COUNT 0.4 K/uL (0-0.8); NEUTROPHIL COUNT 15.9 K/uL (1.8-6.4); PLATELET COUNT 130 K/uL (156-360); RBC DIS.WIDTH-SD 52.5 % (39-53); RED BLOOD COUNT 3.32 M/uL (3.80-5.20); WHITE BLOOD COUNT 16.6 K/uL (4.1-10.2)
[2018-02-21 06:35] LABS: ALBUMIN 3.7 G/DL (3.2-4.8); ALKALINE PHOSPHATASE 58 IU/L (3-129); ALT (GPT) 34 IU/L (3-49); AST (GOT) 15 IU/L (2-34); CHLORIDE 88 MEQ/L (99-109); CREATININE 1.3 MG/DL (0.6-1.3); GFR ESTIMATE (CALCULATED) 43 mL/min/; GLUCOSE 179 mg/dL (70-99); MAGNESIUM 1.5 mg/dl (1.3-2.7); PHOSPHORUS 2.7 mg/dL (2.5-4.9); POTASSIUM 3.5 MEQ/L (3.7-5.4); SODIUM 136 MEQ/L (136-147); TOTAL BILIRUBIN 0.7 MG/DL (0.0-1.0); TOTAL PROTEIN 5.5 G/DL (6.4-8.3); UREA NITROGEN (BUN) 15 mg/dL (9-23); VANCOMYCIN, TROUGH 17.5 MCG/ML (10-20)
[2018-02-21 07:26] VITALS: BP 202/96
[2018-02-21 08:45] VITALS: BP 158/78
[2018-02-21 15:50] VITALS: BP 147/90
[2018-02-21 22:49] VITALS: BP 135/69
[2018-02-22 06:52] LABS: BASOPHIL (%) 0.1 % (0-1); EOSINOPHIL (%) 0 % (0-5); HEMATOCRIT 31.2 % (36.0-46.0); HEMOGLOBIN 10.1 G/DL (11.9-15.5); IMMATURE GRANULOCYTE (%) 1.6 % (0.0-0.7); LYMPHOCYTE (%) 0.7 % (15-42); LYMPHOCYTE COUNT 0.1 K/uL (1.0-2.8); MCH 29.8 PG (29.0-34.0); MCHC 32.4 G/DL (30.0-36.0); MONOCYTE (%) 3.8 % (3-12); MONOCYTE COUNT 0.4 K/uL (0-0.8); NEUTROPHIL (%) 93.8 % (45-76); RBC DIS.WIDTH-CV 16.1 % (11.8-14.6); RBC DIS.WIDTH-SD 52.2 % (39-53); RED BLOOD COUNT 3.39 M/uL (3.80-5.20); WHITE BLOOD COUNT 11.7 K/uL (4.1-10.2)
[2018-02-22 07:08] LABS: PLATELET COUNT 177 K/uL (156-360)
[2018-02-22 07:19] LABS: CHLORIDE 91 MEQ/L (99-109); GFR ESTIMATE (CALCULATED) 58 mL/min/; GLUCOSE 180 mg/dL (70-99); POTASSIUM 3.4 MEQ/L (3.7-5.4); SODIUM 141 MEQ/L (136-147); UREA NITROGEN (BUN) 14 mg/dL (9-23)
[2018-02-22 07:36] VITALS: BP 154/82
[2018-02-22 17:00] VITALS: BP 138/70
[2018-02-23 00:04] VITALS: BP 176/84
[2018-02-23 00:45] VITALS: BP 138/72
[2018-02-23 06:51] LABS: BASOPHIL (%) 0.3 % (0-1); EOSINOPHIL (%) 0 % (0-5); HEMOGLOBIN 10.1 G/DL (11.9-15.5); LYMPHOCYTE (%) 0.8 % (15-42); LYMPHOCYTE COUNT 0.1 K/uL (1.0-2.8); MCH 30.9 PG (29.0-34.0); MCHC 32.6 G/DL (30.0-36.0); MCV 94.8 FL (83-99); MONOCYTE (%) 6.6 % (3-12); MONOCYTE COUNT 0.9 K/uL (0-0.8); NEUTROPHIL (%) 90.3 % (45-76); NEUTROPHIL COUNT 12.9 K/uL (1.8-6.4); NRBC (%) 0.2 /100 WBC (0-0); PLATELET COUNT 206 K/uL (156-360); RBC DIS.WIDTH-SD 56.4 % (39-53); RED BLOOD COUNT 3.27 M/uL (3.80-5.20); WHITE BLOOD COUNT 14.2 K/uL (4.1-10.2)
[2018-02-23 06:55] VITALS: BP 171/84
[2018-02-23 15:00] VITALS: BP 162/78
[2018-02-23 19:22] VITALS: BP 140/78
[2018-02-24 00:18] VITALS: BP 161/75
[2018-02-24 04:00] VITALS: BP 136/81
[2018-02-24 06:18] LABS: BASOPHIL (%) 0.2 % (0-1); EOSINOPHIL (%) 0 % (0-5); HEMATOCRIT 32.7 % (36.0-46.0); HEMOGLOBIN 10.5 G/DL (11.9-15.5); IMMATURE GRANULOCYTE (%) 1.8 % (0.0-0.7); LYMPHOCYTE (%) 0.6 % (15-42); LYMPHOCYTE COUNT 0.1 K/uL (1.0-2.8); MCH 30.4 PG (29.0-34.0); MCHC 32.1 G/DL (30.0-36.0); MCV 94.8 FL (83-99); MONOCYTE (%) 4.9 % (3-12); MONOCYTE COUNT 0.7 K/uL (0-0.8); NEUTROPHIL (%) 92.5 % (45-76); NEUTROPHIL COUNT 13.5 K/uL (1.8-6.4); NRBC (%) 0.1 /100 WBC (0-0); PLATELET COUNT 223 K/uL (156-360); RBC DIS.WIDTH-CV 16.3 % (11.8-14.6); RED BLOOD COUNT 3.45 M/uL (3.80-5.20); WHITE BLOOD COUNT 14.6 K/uL (4.1-10.2)
[2018-02-24 07:13] LABS: CHLORIDE 93 MEQ/L (99-109); CREATININE 1.2 MG/DL (0.6-1.3); GFR ESTIMATE (CALCULATED) 47 mL/min/; GLUCOSE 135 mg/dL (70-99); POTASSIUM 3.8 MEQ/L (3.7-5.4); SODIUM 142 MEQ/L (136-147); UREA NITROGEN (BUN) 14 mg/dL (9-23)
[2018-02-24 07:19] LABS: CREATININE 1.2 MG/DL (0.6-1.3)
[2018-02-24 08:22] VITALS: BP 177/87
[2018-02-24 16:01] VITALS: BP 145/68
[2018-02-24 23:01] VITALS: BP 149/61
[2018-02-25 07:31] VITALS: BP 138/62
[2018-02-25] MEDS ORDERED: LOPRESSOR25 MG PO (10:36)
[2018-02-25] MEDS ORDERED: PREDNISONE10 MG PO (10:41)
[2018-02-25 15:45] VITALS: BP 142/64
[2018-02-26 00:46] VITALS: BP 135/73
[2018-02-26 08:38] VITALS: BP 143/72
[2018-02-26 11:46] LABS: CREATININE 1.2 MG/DL (0.6-1.3)
[2018-02-26 15:30] VITALS: BP 144/75
[2018-02-27 00:21] VITALS: BP 135/70
[2018-02-27 07:05] VITALS: BP 156/78
== END 2018-02-27 13:44 | DRG 270 ==
LOC: DELPENDDIS → EME 10:36 → 5EAST 12:11 → 4WEST 12:11 → EDOF 12:11 → ENRESERV 12:13 → 4WEST 14:58 → ENRESERV 02-16 → 4WEST 02-16 16:00 → ENRESERV 02-16 16:01 → 5EAST 02-16 18:12 → ENPENDDIS 02-25 → 5EAST 02-27 13:44
PROVIDERS: Emergency Medicine; Internal Medicine; Internal Medicine Critical Care Medicine; Obstetrics & Gynecology
PROC: 0BP1XDZ Removal of Intraluminal Device from Trachea, External Approach (ICD-10-PCS; principal; 2018-02-13)
PROC: 5A1935Z Respiratory Ventilation, Less than 24 Consecutive Hours (ICD-10-PCS; principal; 2018-02-13)
PROC: 0BH17EZ Insertion of Endotracheal Airway into Trachea, Via Natural or Artificial Opening (ICD-10-PCS; principal; 2018-02-13)
PROC: 02PY03Z Removal of Infusion Device from Great Vessel, Open Approach (ICD-10-PCS; 2018-02-21)
PROC: 0JPT0WZ Removal of Totally Implantable Vascular Access Device from Trunk Subcutaneous Tissue and Fascia, Open Approach (ICD-10-PCS; 2018-02-21)
DX: T80.212A Local infection due to central venous catheter, initial encounter (principal); Y84.8 Other medical procedures as the cause of abnormal reaction of the patient, or of later complication, without mention of misadventure at the time of the procedure; A41.02 Sepsis due to Methicillin resistant Staphylococcus aureus; R65.20 Severe sepsis without septic shock; J96.22 Acute and chronic respiratory failure with hypercapnia; J96.21 Acute and chronic respiratory failure with hypoxia; G92 Toxic encephalopathy; E11.65 Type 2 diabetes mellitus with hyperglycemia; T38.0X5A Adverse effect of glucocorticoids and synthetic analogues, initial encounter; Z66 Do not resuscitate; J44.1 Chronic obstructive pulmonary disease with (acute) exacerbation; Z99.81 Dependence on supplemental oxygen; E83.39 Other disorders of phosphorus metabolism; K86.89 Other specified diseases of pancreas; R00.0 Tachycardia, unspecified; C50.911 Malignant neoplasm of unspecified site of right female breast; I10 Essential (primary) hypertension; K21.9 Gastro-esophageal reflux disease without esophagitis; E83.52 Hypercalcemia; E86.9 Volume depletion, unspecified; E87.6 Hypokalemia; G25.0 Essential tremor; I48.2 Chronic atrial fibrillation; E78.5 Hyperlipidemia, unspecified; G89.4 Chronic pain syndrome; G43.909 Migraine, unspecified, not intractable, without status migrainosus; F41.9 Anxiety disorder, unspecified; F31.9 Bipolar disorder, unspecified; Z79.811 Long term (current) use of aromatase inhibitors; Z90.11 Acquired absence of right breast and nipple; Z87.01 Personal history of pneumonia (recurrent); Z90.710 Acquired absence of both cervix and uterus; Z87.891 Personal history of nicotine dependence; Z80.0 Family history of malignant neoplasm of digestive organs; Z80.41 Family history of malignant neoplasm of ovary; Z80.8 Family history of malignant neoplasm of other organs or systems
CPT/HCPCS: 36600; 70450; 71045; 71260; 74177; 76937; 80048; 80048 91; 80053; 80198; 80202; 81003; 82150; 82565; 82803; 82948; 83036; 83605; 83690; 83735; 83880; 84100; 84145 90; 84484; 85025; 85610; 85730; 86141; 87040; 87070; 87077; 87147; 87186; 87641; 87801; 93005; 94002; 94640; 94640 76; 94760; 94799; 99202; 99281; 99285; J0330; J0360; J0456; J0696; J1644; J1815; J2250; J2704; J2920; J2930; J3370; J3475; J3480; J7040; J7050; J7120; J7512